=== PATIENT | male | born 1930 | race Caucasian/White ===

== ENCOUNTER 2016-12-09 10:56 | Outpatient (CLI) ==
[2014-01-10 14:35] VITALS: BMI 27.4
--- NOTE | 2016-12-09 11:45 | CT ---
EXAM: CT head without contrast. HISTORY: Initial presentation for head injury due to a fall. COMPARISON: 01/10/2014. TECHNIQUE: Multiple axial images of the brain were obtained from the skull base through the vertex without intravenous contrast. FINDINGS: There is no intracranial hemorrhage or extraaxial collection. The ralph-white differentia tion is maintained without evidence for acute large vascular territory infarction. There are areas of periventricular and subcortical white matter low attenuation. The cortical sulci and cerebral ve ntricles are symmetrically enlarged. The basal cisterns are well visualized. There is no hydroceph alus, mass effect, or midline shift. The paranasal sinuses and mastoid air cells are clear. The ca lvarium is intact. Atherosclerotic calcifications are present. IMPRESSION: 1. No acute intracranial abnormality. 2. Chronic small vessel ischemic changes and atrophy.
== END 2016-12-09 10:57 | disposition home or self-care (01) ==
LOC: RAD 10:56
PROVIDERS: ATTEND Emergency Medicine
DX: S09.90XA Unspecified injury of head, initial encounter (principal); W19.XXXA Unspecified fall, initial encounter

== ENCOUNTER 2017-01-14 12:17 | Outpatient (CLI) ==
[2014-01-10 14:35] VITALS: BMI 27.4
[2017-01-14 12:48] LABS: CREATININE 1.12 mg/dL (0.60-1.10)
--- NOTE | 2017-01-14 14:48 | MRI ---
EXAM: MRI brain without and with IV contrast. DATE: 14 January 2017. HISTORY: Dizziness. Memory problems. TECHNIQUE: Sagittal T1W pre and postcontrast, axial T2W, axial FLAIR, axial T1W pre and postcontras t, axial DWI, coronal T1W postcontrast, and coronal T2W GRE sequences of the brain were obtained usi 1.2 Colleen magnet. CONTRAST: Omniscan - 14 ml IV. COMPARISON: CT head 11/22/2016. MRI brain 10 January 2014. FINDINGS: The ventricles, cisterns, and subarachnoid spaces are commensurately enlarged due to invo lutional change. No midline shift, mass effect or abnormal extra-axial fluid collection is apparent . No acute infarct, hemorrhage or enhancing neoplasm is identified. No abnormal contrast enhanceme nt is identified in the brain, meninges or dura. Small, confluent rim of T2W/FLAIR hyperintensity i s observed in the white matter abutting each lateral ventricle. Small number of 2-10 mm, T2W/FLAIR bright, non-enhancing foci are scattered within the chen radiata, centrum semiovale and subcortica l white matter similar to January 2014. prominent Virchow-Andres spaces are redemonstrated within the b ilateral basal ganglia. Enlarged Virchow-Andres spaces are also noted in each cerebral peduncle. Se veral T2W/FLAIR bright, 2 mm foci are scattered in the solomon. The ralph - white matter differentiatio n is normal. No migration or diverticulation abnormality is identified. The amygdala, hippocampus, and parahippocampal gyri are similar bilaterally. The 7th/8th cranial nerve complexes, cerebellopon zuly angles, and visible cervical spinal cord are normal. There is no cerebellar tonsillar ectopia. The pituitary gland is normal in size . There is a 1.2 mm hypoenhancing focus in the inferior mar gin of the anterior pituitary lobe. Corpus callosum is normal in size and configuration. Flow void s are present in the major intracranial arteries and in the dural venous sinuses. No aneurysm, AVM or dural venous sinus thrombosis is apparent. No orbit abnormality is identified. The mastoid air cells are unremarkable. There is minor mucosal thickening within scattered right ethmoid air cells. No neck mass or lymphadenopathy is detected. No calvarial neoplasm or acute fracture is evident. IMPRESSIONS: 1. No acute infarct, hemorrhage, enhancing neoplasm or hydrocephalus. 2. Bilateral cerebral peduncle and basal ganglia prominent Virchow-Andres spaces (benign).. 3. Mild cerebral and brainstem small vessel disease. 4. Mild cerebral and minor cerebellar atrophy. 5. Minor ethmoid sinus mucosal disease. 6. Pituitary artifact vs microadenoma (1.2 mm).
== END 2017-01-14 12:18 | disposition home or self-care (01) ==
LOC: LAB 12:17
PROVIDERS: ATTEND Internal Medicine
DX: R42 Dizziness and giddiness (principal)
CPT/HCPCS: 36415; 82565

== ENCOUNTER 2017-07-26 15:57 | Inpatient (IN) ==
--- NOTE | 2017-07-26 18:00 | ED.PDOC ---
General ED Provider: Dr. MARJORIE MAURCIE Chief Complaint: Fall Stated Complaint: Fell striking forehead and sustaining a lacertation to the forehead. Slipped on ice going out to feed the birds. Denies LOC/Alert and coherent. Had large amout of bleeding contolled with pressure dressing. Time Seen by Physician: 16:00 Mode of Arrival: Ambulance Information Source: Patient, Family, EMT Exam Limitations: No limitations, Clinical condition Primary Care Provider: KENNETH THOMPSON Nursing and Triage Documentation Reviewed and Agree: Yes Reviewed sepsis parameters & appropriate labs ordered?: Yes System Inflammatory Response Syndrome: Not Applicable Sepsis Protocol: For patient's 13 years and over: Temp is 96.8 and below OR 101 and greater Pulse >90 BPM Resp >20/minute Acutely Altered Mental Status Are patient's symptoms suggestive of a new infection, such as: -Pneumonia -Skin, Soft Tissue -Endocarditis -UTI -Bone, Joint Infection -Implantable Device -Acute Abdominal Infection -Wound Infection -Meningitis -Blood Stream Catheter Infection -Unknown System Inflammatory Response Syndrome: Not Applicable Trauma/Injury Complaint Exam - Head Injury Complaint/Exam Location of Pain: Reports: Left, Forehead Mechanism of Injury: Reports: Trauma Symptoms Are: Still present Initial Severity: Severe Current Severity: Mild Character: Reports: Dull Aggravating: Reports: None Alleviating: Reports: Other (Lidocaine ) Associated Signs and Symptoms: Denies: Confusion, Memory loss, Seizure, Epistaxis, Neck pain, Nausea, Vomiting Loss of Consciousness: None Related History: Denies: Similar episode SDH Risk Factors: Present: None Cervical Spine Injury Risk Factors: Present: None Related Surgical History: Reports: None C-Collar in Place: no Backboard in Place: no Head Injury Findings: Present: Normal findings Focal Weakness: Present: None Focal Sensory Loss: Present: None Gait: Unable Gag Reflex Present: Yes Differential Diagnoses: Other (Forehead blunt trauma with laceration) Review of Systems - Review Of Systems Constitutional: Reports: No symptoms Eyes: Reports: No symptoms Ears, Nose, Mouth, Throat: Reports: No symptoms Respiratory: Reports: No symptoms Cardiac: Reports: No symptoms GI: Reports: No symptoms : Reports: No symptoms Musculoskeletal: Reports: No symptoms Skin: Reports: No symptoms Neurological: Reports: No symptoms Endocrine: Reports: No symptoms Hematologic/Lymphatic: Reports: No symptoms All Other Systems: Reviewed and Negative Past Medical History - Past Medical History Endocrine: Reports: Hypothyroid Cardiovascular: Reports: Hypertension Respiratory: Reports: None Hematological: Reports: None Gastrointestinal: Reports: None Genitourinary: Reports: None Neuro/Psych: Reports: None Musculoskeletal: Reports: None Cancer: Reports: None - Surgical History General Surgical History: Reports: None - Family History Family History: Reports: None - Social History Smoking Status: Former smoker Hx Substance Use: No Alcohol Screening: None - Immunizations Tetanus Shot up to Date: No Physical Exam - Physical Exam Appearance: Obese Ill-appearing: None Pain Distress: Moderate Eyes: CRISPIN, EOMI, Conjunctiva clear ENT: Ears normal, Nose normal, Oropharynx normal Neck: Supple Respiratory: Airway patent, Breath sounds clear GI/: Soft, Nontender Musculoskeletal: Normal strength, ROM intact, No edema Skin: Warm, Dry, Normal color Neurological: Sensation intact, Motor intact, Alert, Oriented Psychiatric: Affect appropriate Procedures - Laceration/Wound Repair Forehead Wound Description: Linear Wound Length (cm): 5 1/2 cm Wound Width: 1 cm Wound Depth: subcutaneous Wound Explored: Clean Wound Irrigated: Yes Wound Prep: Hibiclens, Betadine Anesthesia: Lidocaine w/ Epi Wound Repaired With: Sutures Suture Size and Type: 3-0 Ethilon Number of Sutures: 6 (deep simple for hemostasis-bleeding contolled) Critical Care Note - Critical Care Note Total Time (mins): 1 Course - Course Hematology/Chemistry: 07/26/17 18:05 07/26/17 18:05 Orders, Labs, Meds: Lab Review 07/26/17 07/26/17 18:05 18:05 WBC 13.27 H RBC 4.39 L Hgb 13.8 L Hct 37.8 L MCV 86.1 MCH 31.4 H MCHC 36.5 H RDW Coeff of Stacy 13.2 Plt Count 176 Immature Gran % (Auto) 1.2 Neut % (Auto) 79.9 Lymph % (Auto) 11.5 Mcleod % (Auto) 5.5 Eos % (Auto) 1.3 Baso % (Auto) 0.6 Immature Gran # (Auto) 0.2 Neut # 10.6 H Lymph # 1.5 Mcleod # 0.7 Eos # 0.2 Baso # 0.1 Sodium 142 Potassium 3.4 L Chloride 105 Carbon Dioxide 26 Anion Gap 14.4 BUN 13 Creatinine 1.07 Estimated GFR (MDRD) 66.00 BUN/Creatinine Ratio 12.14 Glucose 127 H Calcium 9.0 Total Bilirubin 0.6 AST 28 ALT 31 Alkaline Phosphatase 53 L Total Protein 6.9 Albumin 3.7 Globulin 3.2 Albumin/Globulin Ratio 1.16 Orders Category Date Time Status CBC W/ AUTO DIFF Stat LAB 07/26/17 18:05 Completed CMP [COMPREHENSIVE METABOLIC PANEL] Stat LAB 07/26/17 18:05 Completed Acetaminophen [Tylenol] MEDS 07/26/17 19:03 Discontinued 650 mg PO ONCE STA Cefazolin Sodium [Ancef] MEDS 07/26/17 19:07 Discontinued 1 gm .ROUTE .STK-MED ONE Cefazolin Sodium [Ancef] 1 gm MEDS 07/26/17 19:03 Discontinued 0.9 % Sodium Chloride [Sodium Chloride] 100 ml IV ONCE Diphth,Pertuss(Acell),Tet Vac [Boostrix] MEDS 07/26/17 19:13 Discontinued 0.5 ml IM .ONCE ONE Lidocaine 1%/Epinephrine [Lidocaine 1%-Epi 1:100,000 20 MEDS 07/26/17 18:07 Discontinued ml Mdv] 1 ml INJ ONCE STA CT CERVICAL SPINE W/O CONTRAST Stat RADS 07/26/17 17:[address] HEAD W/O CONTRAST Stat RADS 07/26/17 17:57 Completed Medications Generic Name Dose Route Start Last Admin Trade Name Frecami PRN Reason Stop Dose Admin Acetaminophen 650 mg 07/26/17 20:17 Tylenol PO Q4H PRN Analgesia Cefazolin Sodium 1 gm/ Sodium 100 mls @ 100 mls/hr 07/27/17 06:00 Chloride IV Q8HR [facility] Isosorbide Mononitrate 30 mg 07/27/17 09:00 Imdur PO DAILY TWYLA Levothyroxine Sodium 50 mcg 07/27/17 06:30 Synthroid PO QDAC TWYLA Non-Formulary Medication 1 tab 07/27/17 09:00 Amlodipine Bes/Olmesartan Med [Natty 5-40 Mg Tablet] PO DAILY TWYLA Non-Formulary Medication 1 tab 07/28/17 09:00 B2/Vits A,C,E/Lut/Zeaxanth/Min [Icaps Tablet] PO EVERY OTHER DAY TWYLA Non-Formulary Medication 10 mg 07/27/17 09:00 Nebivolol Hcl [Bystolic] PO DAILY TWYLA Discontinued Medications Generic Name Dose Route Start Last Admin Trade Name Andreina PRN Reason Stop Dose Admin Acetaminophen 650 mg 07/26/17 19:03 07/26/17 19:18 Tylenol PO 07/26/17 19:04 650 mg ONCE STA Administration Diphtheria/Pertussis/Tetanus Vacc 0.5 ml 07/26/17 19:13 07/26/17 19:23 Boostrix IM 07/26/17 19:14 0.5 ml .ONCE ONE Administration Cefazolin Sodium 1 gm/ Sodium 100 mls @ 100 mls/hr 07/26/17 19:03 07/26/17 19 :17 Chloride IV 07/26/17 20:02 100 mls/hr ONCE STA Administration Lidocaine/Epinephrine 1 ml 07/26/17 18:07 07/26/17 18:46 Lidocaine 1%-Epi 1:100,000 20 Ml Mdv INJ 07/26/17 18:08 1 ml ONCE STA Administration Vital Signs: Temp Pulse Resp BP Pulse Ox 07/26/17 15:58 97.8 F 93 H 20 143/96 H 96 Departure - Departure Time of Disposition: 19:30 Disposition: ADMITTED INPATIENT Discharge Problem: Forehead laceration, Closed head injury Condition: Good Pt referred to PMD for follow-up: Yes IPMP verified?: No Allergies/Adverse Reactions: Allergies No Known Allergies Allergy (Verified 07/26/17 16:14) Home Medications: Ambulatory Orders Amlodipine Bes/Olmesartan Med [Natty 5-40 mg Tablet] 1 tab PO DAILY 01/10/14 Aspirin [Aspirin EC] 81 mg PO 1700 01/10/14 B2/Vits A,C,E/Lut/Zeaxanth/Min [Icaps Tablet] 1 tab PO EVERY OTHER DAY 01/10/14 Isosorbide Mononitrate [Imdur] 30 mg PO DAILY 01/10/14 Levothyroxine Sodium [Synthroid] 50 tab PO DAILY 01/10/14 Nebivolol HCl [Bystolic] 10 mg PO DAILY 01/10/14
[2017-07-26] MEDS ORDERED: LIDOCAINE 1%-EPI 1:100,000 20 ML MDV INJ STA (18:07)
--- NOTE | 2017-07-26 18:58 | CT ---
EXAM: CT head without contrast. HISTORY: Trauma. PROCEDURE: Contiguous axial CT images of the head without contrast with coronal and sagittal reforma ts. FINDINGS: There is diffuse cerebral atrophy. The ventricles and basal cisterns are normal in size an d configuration. No evidence of mass or midline shift. No intracranial hemorrhage or evidence of la rge vessel infarct. No extra-axial fluid collection. There are chronic small vessel ischemic change s in the white matter. There are calcifications in the posterior right parietal lobe. The paranasal s inuses and mastoid air cells are well-aerated and normal in appearance. No skull fracture. There ar e small bifrontal scalp hematomas and bilateral periorbital soft tissue swelling. Impression: No intracranial hemorrhage or skull fracture. Small bifrontal scalp hematomas. Bilateral periorbital soft tissue swelling. Chronic small vessel ischemic changes. Diffuse cerebral atrophy.
[2017-07-26] MEDS ORDERED: ANCEF 1 GM in SODIUM CHLORIDE 100 ML IV STA (19:03)
[2017-07-26] MEDS ORDERED: TYLENOL PO STA (19:03)
--- NOTE | 2017-07-26 19:04 | CT ---
EXAM: CT of the cervical spine without contrast. HISTORY: Injury. PROCEDURE: Contiguous axial CT images of the cervical spine without contrast with coronal and sagitt al reformats. FINDINGS: There is normal alignment of the cervical vertebral bodies and facets. The vertebral body heights are maintained. There is disc space narrowing at multiple levels of the cervical spine. The re are posterior osteophytes at multiple levels of the cervical spine with multilevel neural foramina l narrowing. There is multilevel facet arthropathy. The C1-2 relationship is maintained. No prever tebral soft tissue abnormality. Impression: No evidence of fracture. Normal alignment of the cervical spine with degenerative changes as described. Multilevel neural foraminal narrowing as described.
[2017-07-26] MEDS ORDERED: ANCEF ONE (19:07)
[2017-07-26] MEDS ORDERED: BOOSTRIX IM ONE (19:13)
[2017-07-26] MEDS ORDERED: TYLENOL PO PRN (20:17)
[2017-07-26 21:22] VITALS: BMI 27.1
[2017-07-27] MEDS ORDERED: ANCEF ONE (03:25)
[2017-07-27] MEDS: ANCEF 1 GM in SODIUM CHLORIDE 100 ML IV SCH ×3 (06:00→20:43)
[2017-07-27] MEDS: SYNTHROID PO SCH (06:00)
[2017-07-27] MEDS ORDERED: K-DUR PO STA (08:42)
[2017-07-27] MEDS: BYSTOLIC PO SCH (08:56)
[2017-07-27] MEDS: NORVASC PO SCH (08:57)
[2017-07-27] MEDS: BENICAR PO SCH (08:57)
[2017-07-27] MEDS: IMDUR PO SCH (08:58)
[2017-07-27] MEDS: COLACE PO SCH (08:58)
[2017-07-27] MEDS ORDERED: OLMESARTAN MED PO SCH (09:00)
[2017-07-27] MEDS ORDERED: AMLODIPINE BES PO SCH (09:00)
[2017-07-27] MEDS ORDERED: NON-FORMULARY MEDICATION (Nebivolol Hcl [Bystolic] 10 MG) PO SCH (09:00)
--- NOTE | 2017-07-27 11:34 | PCM.PROG ---
Attending Provider: ATTENDING PROVIDER: Dr. KENNETH THOMPSON This patient is seen with Josefina Barnhart, Nurse Practitioner. DATE OF SERVICE: 07/27/17 SUBJECTIVE: This 86 year old WHITE/ M was hospitalized 07/26/17. The patient is alert, lying in bed. He is confused off and on due to dementia. Denies dizziness, headache or changes in vision. REVIEW OF SYSTEMS: CONSTITUTIONAL: Weakness. No night sweats. No fever or chills. HEENT: Eyes: No visual changes. No eye pain. No eye discharge. ENT: No runny nose. No epistaxis. No sinus pain. No odynophagia. No congestion. RESPIRATORY: No cough, no congestion. No hemoptysis. No shortness of breath. CARDIOVASCULAR: No angina symptoms. No CHF symptoms. No atypical chest pain for CAD. No palpitations. No orthopnea.. GASTROINTESTINAL: No abdominal pain. No nausea or vomiting. No diarrhea or constipation. No hematemesis. No hematochezia. GENITOURINARY: No urgency. No frequency. No dysuria. No hematuria. No obstructive symptoms. No discharge. No pain. No significant abnormal bleeding. MUSCULOSKELETAL: No musculoskeletal pain; no joint swelling. NEUROLOGICAL: Awake, alert, oriented to person and place, not time. No headache. No neck pain. No syncope. No seizures. No dizziness. PSYCHIATRIC: Not anxious. No depression. No suicidal thoughts. No homicidal thoughts. SKIN: No rash. No lesions. Laceration to forehead. Multiple bruises. ENDOCRINE: No unexplained weight loss. No weight gain. HEMATOLOGIC/LYMPHATIC: No anemia. No purpura. No petechiae. No prolonged or excessive bleeding. No palpable lymph nodes. PHYSICAL EXAMINATION: GENERAL: The patient is awake, alert and oriented, lying in bed in no distress. VITAL SIGNS: Temperature 97.3 F, Pulse 86, Respiratory Rate 20, BP 147/96, Pulse Ox 96% HEENT: Head normocephalic, atraumatic. Eyes: Extraocular muscles are intact. Pupils are equal, round and reactive to light and accommodation. Ears: No lesions. Nose appeared normal. Throat: No exudate or erythema. NECK: Supple. No JVD, no carotid bruit. No lymphadenopathy or thyromegaly. LUNGS: Diminished breath sounds bilaterally. Clear to auscultation. Percussion note normal. Chest symmetrical. HEART: S1, S2, no S3. No murmurs. No cyanosis or clubbing. No ascites. Pulses: Dorsalis pedis and posterior tibial pulses +1 to +2 both sides. ABDOMEN: Soft. Non-tender. Bowel sounds active. No CVA tenderness. No mass felt. EXTREMITIES: No edema. Full range of motion of all extremities, equal. NEUROLOGIC: No focal deficit. Cranial nerves II through XII are grossly intact. No headache, no double vision or headache. SKIN: Warm and dry. 6" laceration to forehead, intact. No sign of infection. Multiple bruises due to fall. Turgor-normal. LYMPHATIC: No palpable lymph nodes/no lymphedema. MUSCULOSKELETAL: Normal joints with no swelling. Muscle tone is normal. LAB REVIEW: 07/27/17 04:30 07/27/17 04:30 07/27/17 04:30: Sodium 140, Potassium 3.2 L, Chloride 106, Carbon Dioxide 25, Anion Gap 12.2, BUN 15, Creatinine 1.03, Estimated GFR (MDRD) 69.00, BUN/ Creatinine Ratio 14.56, Glucose 131 H, Calcium 8.6, Total Bilirubin 0.8, AST 25 , ALT 28, Alkaline Phosphatase 48 L, Total Protein 6.4, Albumin 3.5, Globulin 2.9, Albumin/Globulin Ratio 1.21 07/27/17 04:30: WBC 11.91 H, RBC 4.13 L, Hgb 12.9 L, Hct 36.0 L, MCV 87.2, MCH 31.2 H, MCHC 35.8 H, RDW Coeff of Tsacy 13.3, Plt Count 175, Immature Gran % (Auto ) 0.8, Neut % (Auto) 64.1, Lymph % (Auto) 24.6, Hudson % (Auto) 7.1, Eos % (Auto) 2.7, Baso % (Auto) 0.7, Immature Gran # (Auto) 0.1, Neut # 7.6 H, Lymph # 2.9, Hudson # 0.9, Eos # 0.3, Baso # 0.1 ASSESSMENT: 1. Head injury with laceration status post fall 2. Hypertension 3. Hypokalemia PLAN: 1. Potassium 40 mEq b.i.d. 2. MRI of head with contrast today. Plan and coordination of the patient's care discussed in the presence of Weight Control Lecturer and nurse. CONDITION: Stable SCRIBED BY: AMI HANNAH Italian Teacher scribed while in presence of service performed by Dr. Thompson/Josefina Barnhart APRN on 07/27/17 ([id number])
--- NOTE | 2017-07-27 11:56 | RS.PTINEVL ---
Subjective - Patient information Date of Evaluation: 07/27/17 Date of Arrival on Unit: 07/26/17 Admitted From:: Home Diagnosis: fall with laceration to forehead requiring stitches Usual Living Arrangement: With Spouse Living Arrangement Comments: lives at home with spouse. Home Environment: House, Stairs (few), Rail Medical History: Hypertension, Dementia Medical History Comments:: chronic neck pain, erhlichia in 2013 LATEX ALLERGY?: No Medications: see chart Subjective Information/ Patient Comments:: pt states he falls often at home because he gets overbalanced and falls forward. - Level of function Prior to this admission, the patient could do the following:: Independent ADL's , Independent Ambulation, Drive Abilities prior to this admission: pt amb with quad cane at home and assisted into and out of shower. pt drove in [facility] ([place]) Current Level of Function: Partially Dependent Current Equipment Used at Home: cane Pain Assessement - Location Neck Description: Aching Intensity: 1 Pain Alleviating Factors: Medication Interventions - Objective Patient Orientation: Person, Place Current Interventions: Telemetry Range of Motion - ROM Right Upper Extremity AROM: WFL's Left Upper Extremity AROM: WFL's Right Lower Extremity AROM: WFL's Left Lower Extremity AROM: WFL's Muscle Strength - Muscle Strength Right Upper Extremity Strength: Mild Weakness (grossly 4/5) Left Upper Extremity Strength: Mild Weakness (grossly 4/5) Right Lower Extremity Strength: Mild Weakness (hip flex 4/5, knee flex/ext 4/5, ankle DF/PF 4+/5) Left Lower Extremity Strength: Mild Weakness (hip flex 4/5, knee flex/ext 4/5, ankle DF/PF 4+/5) Sensation - Sensation Right Upper Extremity Sensation: Intact/Normal Left Upper Extremity Sensation: Intact/Normal Right Lower Extremity Sensation: Intact/Normal Left Lower Extremity Sensation: Intact/Normal Balance - Sitting Balance and Reactions Static Sitting Balance: Good Dynamic Sitting Balance: Fair Sitting Equilibrium Reactions: Delayed Left, Delayed Right Sitting Protective Reactions: Delayed Left, Delayed Right - Standing Balance and Reactions Static Standing Balance: Fair Dynamic Standing Balance: Poor Standing Equilibrium Reactions: Delayed Left, Delayed Right Standing Protective Reactions: Delayed Left, Delayed Right - Comments Balance Assessment Comments: Tinetti score: 14/28 Functional Mobility - Bed Mobility Rolling R/L: Min Assist Supine to Sit: Min Assist Sit to Supine: Min Assist - Transfers Sit to Stand: Min Assist Stand to Sit: Min Assist - Safety Awareness Safety Awareness: Fair Ambulation - Ambulation Assistive Device Used: Rolling Walker Orthotic/Prosthetic Device: No Distance: 100ft Assistance needed with Ambulation: CGA, Min Assist Gait Deviations: Forward posture, Short stride Ambulation Comments: pt amb with flexed posture, decreased step length, as well as increased lat sway Factors Affecting Ambulation: Decreased Balance, Weakness, Decreased Coordination, Decreased Safety, Cognitive Status, Limited Endurance Treatment time - Time with patient Total treatment time: 28 Patient Education - Education Patient Education: Education of Plan of Care Teaching Recipient: Patient Teaching Methods: Discussion Assessment - Assessment Problem List:: Decreased level of function, Requires training/education, Decreased safety/Risk of falls, Weakness, Cognitive status limits abilities Rehab Potential: Good Further Therapy Indicated?: Yes Short Term Goals GOAL #1: pt transfer sup to/from sit to/from stand CGA Goal to be met by: 07/30/17 GOAL #2: pt amb with rwx 125ft with CGA with no LOB Goal to be met by: 07/30/17 GOAL #3: pt demonstrate ability to rolling and scooting up in bed independently Goal to be met by: 07/31/17 Silk Screen Operator Goals GOAL #1: pt transfer sup to/from sit to/from stand SBA Goal to be met by: 08/02/17 GOAL #2: pt amb functional household distances with rwx with SBA Goal to be met by: 08/02/17 GOAL #3: pt with improved dyn stand balance as noted by tinetti score Goal to be met by: 08/02/17 Plan Plan of Care: Therapeutic EX, Therapeutic Activity Other:: gait training Frequency of Treatment: 1-2 X day, as tolerated Duration of Treatment: 6 days Anticipated Discharge Destination: Home Has the Physician been added for Co-signature?: Yes
--- NOTE | 2017-07-27 12:58 | MRI ---
EXAM: MRI brain without and with IV contrast. DATE: 07/27/2017. HISTORY: Fall. Laceration left forehead. TECHNIQUE: Sagittal T1W pre and postcontrast, axial T2W, axial FLAIR, axial T1W pre and postcontrast , axial DWI, coronal T1W postcontrast, and coronal T2W GRE sequences of the brain were obtained using 1.2 Colleen magnet. CONTRAST: Omniscan - 14 ml IV. COMPARISON: CT head 07/26/2017. MRI brain 14 January 2017. FINDINGS: The ventricles, cisterns, and subarachnoid spaces are commensurately enlarged due to invol utional change. No midline shift, mass effect or abnormal extra-axial fluid collection is apparent. No acute infarct, hemorrhage or enhancing neoplasm is identified. No abnormal contrast enhancement is identified in the brain, meninges or dura. Prominent Virchow-Andres spaces are observed in each ba karena ganglia. Small, confluent rim of T2W/FLAIR hyperintensity is redemonstrated in the white matter abutting each lateral ventricle. Small number of 2-10 mm, T2W/FLAIR bright, non-enhancing foci scatt ered in the chen radiata, centrum semiovale and subcortical white matter are essentially unchanged from January 2017. Left thalamic T2W bright, T1W dark, 1.8 x 5 mm focus is likely an old infarct. Smal l areas of T2W/FLAIR hyperintensity within the solomon are slightly more pronounced compared to January 201 7. The ralph - white matter differentiation is normal. No migration or diverticulation abnormality i s identified. The amygdala, hippocampus, and parahippocampal gyri are similar bilaterally. The 7th/ 8th cranial nerve complexes, cerebellopontine angles, and visible cervical spinal cord are normal. T here is no cerebellar tonsillar ectopia. The pituitary gland is normal in size. A 1.2 mm hypoenhanc ing focus is observed in the anterior inferior aspect of the pituitary gland is similar to January 2017 Corpus callosum is normal in size and configuration. Flow voids are present in the major intracrani al arteries and in the dural venous sinuses. No aneurysm, AVM or dural venous sinus thrombosis is ap parent. No orbit abnormality is identified. The mastoid air cells are unremarkable. There is minor mucosal thickening within each frontal sinus and scattered ethmoid air cells. No paranasal sinus op acification or air-fluid level is revealed. No neck mass or lymphadenopathy is detected. No calvari al neoplasm or acute fracture is evident. A left frontal scalp hematoma (14 x 7 mm) with adjacent sub cutaneous edema and scalp laceration correspond with CT abnormality of the same date. IMPRESSIONS: 1. No acute infarct, intracranial hemorrhage, enhancing neoplasm or hydrocephalus. 2. Prominent Virchow-Andres spaces in the basal ganglia and cerebral peduncles. 3. Mild cerebral and brainstem small vessel disease. 4. Mild cerebral and minor cerebellar atrophy. 5. Minor ethmoid and maxillary sinus disease. 6. 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 7. Left frontal scalp hematoma/contusion/laceration.
--- NOTE | 2017-07-27 13:06 | PN ---
DATE OF SERVICE: 07/26/17 SUBJECTIVE: 86 year old white male fell at home and had head injury. The patient says that he was woozy for a while and didn't find his house which was near by. He walked to the house and then decided to come to the emergency room. He has laceration on the scalp on the left side. The patient was seen and examined by the ER attending. I was also present at that time. The patient's entire neurological status including reflexes, pupils were equal and reactive to light normal. All the reflexes were normal. He was moving all the extremities. He was oriented to time, place and person. The patient's CT scan was negative. The [employer] OFFIC[employer] examination by the ER physician was also negative. The patient is up and about. The patient' s bleeding has stopped. The patient has been sutured up by ER attending. Entire chemistry and CBC are negative. The patient is going to be watched with neuro checks. CONDITION: Stable. TIME SPENT: More than 30 minutes. Plan and coordination of the patient's care discussed in the presence of nurse. WARD
--- NOTE | 2017-07-27 14:23 | RS.OTINEVL ---
Subjective - Patient information Date of Evaluation: 07/27/17 Date of Arrival on Unit: 07/26/17 Admitted From:: Home Usual Living Arrangement: With Spouse Living Arrangement Comments: lives at home with spouse. Home Environment: House, Stairs (few), Rail Medical History: Hypertension, Dementia Medical History Comments:: chronic neck pain, erhlichia in 2014, macular degeneration, dementia, Anemia, CHI LATEX ALLERGY?: No Medications: see chart Subjective Information/ Patient Comments:: "My son-in-law is going to come up here and give me heck." "I have fallen alot." "I broke my glasses." "This left foot and leg does not always work right." - Level of function Prior to this admission, the patient could do the following:: Independent ADL's , Independent Ambulation, Drive Abilities prior to this admission: Pt was ambulating with a quad cane assistive device intermittently. Pt was falling numerous times a day. Pt was independent with dressing, showering. Current Level of Function: Partially Dependent Current Equipment Used at Home: cane Pain Assessment - Pain Pain Score: 0 Interventions - Objective Patient Orientation: Person, Place, Situation Current Interventions: IV's, Oxygen, Telemetry Observation: Pt has sutures to the Left side of his head above the left eyebrow and eye into the hair line. Pt has bruising to both eyes and cheek bones due to breaking the eye glasses. Interventions - ROM Right Upper Extremity AROM: WFL's Left Upper Extremity AROM: WFL's - Strength Right Upper Extremity Strength: Mild Weakness Left Upper Extremity Strength: Mild Weakness - Sensation Right Upper Extremity Sensation: Intact/Normal Left Upper Extremity Sensation: Intact/Normal Balance - Sitting Balance Static Sitting Balance: Fair Dynamic Sitting Balance: Fair - Standing Balance Static Standing Balance: Fair Dynamic Standing Balance: Poor ADL Skills - Self Feeding Self Feeding: Independent - Grooming Grooming: Min Assist - Bathing Bathing UE: CGA Bathing LE: CGA - Dressing Dressing UE: CGA Dressing LE: Min Assist - Toilet Management Toileting Management: Min Assist Functional Mobility - Bed Mobility Rolling R/L: Not Tested Scooting: Not Tested Supine to Sit: Not Tested Sit to Supine: Not Tested - Transfers Sit to Stand: Min Assist Stand to Sit: Min Assist Stand Pivot Transfers: Min Assist - Ambulation Weight Bearing Status: FWB Assistive Device Used: Rolling Walker - Safety Awareness Safety Awareness: Poor Additional Treatment Performed - Time with patient Total treatment time: 20 Activities Patient Interests:: Watching Television, Visiting/Socializing Patient Education Patient Education: Home Safety, Education of Plan of Care Teaching Recipient: Patient, Family Teaching Methods: Discussion Assessment Problem List:: Decreased level of function, Decreased safety/Risk of falls, Weakness Rehab Potential: Good Further Therapy Indicated?: Yes Short Term Goals - Goals GOAL 1: Pt to complete functional mobility CGA with RW. Goal to be met by: 07/30/17 GOAL 2: Pt to complete toileting transfer CGA with RW. Goal to be met by: 07/30/17 GOAL 3: Pt to complete sink level ADLS CGA. Goal to be met by: 07/30/17 Group Home Goals GOAL 1: Pt to complete functional mobility SUP with RW. Goal to be met by: 08/04/17 GOAL 2: Pt to complete toileting transfer SUP with RW. Goal to be met by: 08/04/17 GOAL 3: Pt to complete sink level ADLS SUP. Goal to be met by: 08/04/17 Plan Plan of Care: Therapeutic EX, Neuromuscular Re-Educ, Therapeutic Activity, Self- Care/Home Management Frequency of Treatment: 1-2 X day, as tolerated Duration of Treatment: 2 Weeks Anticipated Discharge Destination: Home Has the Physician been added for Co-signature?: Yes
[2017-07-28] MEDS: ANCEF 1 GM in SODIUM CHLORIDE 100 ML IV SCH (05:40)
[2017-07-28] MEDS: SYNTHROID PO SCH (05:40)
[2017-07-28] MEDS ORDERED: K-DUR ONE (07:48)
[2017-07-28] MEDS ORDERED: K-DUR PO SCH (08:00)
[2017-07-28] MEDS: IMDUR PO SCH (08:45)
[2017-07-28] MEDS: COLACE PO SCH (08:46)
[2017-07-28] MEDS: BENICAR PO SCH (08:46)
[2017-07-28] MEDS: NORVASC PO SCH (08:46)
[2017-07-28] MEDS: BYSTOLIC PO SCH (08:46)
[2017-07-28] MEDS ORDERED: [UNRECOGNIZED DRUG - OTHER] PO SCH (09:00)
--- NOTE | 2017-07-28 09:59 | PCM.PROG ---
Attending Provider: ATTENDING PROVIDER: Dr. KENNETH THOMPSON This patient is seen with Josefina Barnhart, Nurse Practitioner. DATE OF SERVICE: 07/28/17 SUBJECTIVE: This 86 year old WHITE/ M was hospitalized 07/26/17. The patient is lying in bed, alert. He denies any dizziness. He has been up and about and is ready to go home. He is agreeable to PT at home. REVIEW OF SYSTEMS: CONSTITUTIONAL: Weakness. No night sweats. No fever or chills. HEENT: Eyes: No visual changes. No eye pain. No eye discharge. ENT: No runny nose. No epistaxis. No sinus pain. No odynophagia. No congestion. RESPIRATORY: No cough, no congestion. No hemoptysis. No shortness of breath. CARDIOVASCULAR: No angina symptoms. No CHF symptoms. No atypical chest pain for CAD. No palpitations. No orthopnea.. GASTROINTESTINAL: No abdominal pain. No nausea or vomiting. No diarrhea or constipation. No hematemesis. No hematochezia. GENITOURINARY: No urgency. No frequency. No dysuria. No hematuria. No obstructive symptoms. No discharge. No pain. No significant abnormal bleeding. MUSCULOSKELETAL: No musculoskeletal pain; no joint swelling. NEUROLOGICAL: Awake, alert, oriented to time, place and person. No headache. No neck pain. No syncope. No seizures. No dizziness. PSYCHIATRIC: Not anxious. No depression. No suicidal thoughts. No homicidal thoughts. SKIN: No rash. No lesions. Left forehead laceration with bruising to left side of face. ENDOCRINE: No unexplained weight loss. No weight gain. HEMATOLOGIC/LYMPHATIC: No anemia. No purpura. No petechiae. No prolonged or excessive bleeding. No palpable lymph nodes. PHYSICAL EXAMINATION: GENERAL: The patient is awake, alert and oriented, lying in bed in no distress. VITAL SIGNS: Temperature 98.5 F, Pulse 61, Respiratory Rate 18, BP 127/75, Pulse Ox 95% HEENT: Head normocephalic. Laceration to left forehead, no sign of infection. Eyes: Extraocular muscles are intact. Pupils are equal, round and reactive to light and accommodation. Ears: No lesions. Nose appeared normal. Throat: No exudate or erythema. NECK: Supple. No JVD, no carotid bruit. No lymphadenopathy or thyromegaly. LUNGS: Diminished breath sounds. Clear to auscultation. Percussion note normal. Chest symmetrical. HEART: S1, S2, no S3. No murmurs. No cyanosis or clubbing. No ascites. Pulses: Dorsalis pedis and posterior tibial pulses +1 to +2 both sides. ABDOMEN: Soft. Non-tender. Bowel sounds active. No CVA tenderness. No mass felt. EXTREMITIES: No edema. Full range of motion of all extremities, equal. NEUROLOGIC: No focal deficit. Cranial nerves II through XII are grossly intact. No headache, no double vision or headache. SKIN: Warm and dry. Left-side forehead laceration. Bruising to left side of face. Turgor-normal. LYMPHATIC: No palpable lymph nodes/no lymphedema. MUSCULOSKELETAL: Normal joints with no swelling. Muscle tone is normal. LAB REVIEW: 07/28/17 03:45 07/28/17 03:45 07/28/17 03:45: Sodium 140, Potassium 3.4 L, Chloride 107, Carbon Dioxide 25, Anion Gap 11.4, BUN 13, Creatinine 1.04, Estimated GFR (MDRD) 68.00, BUN/ Creatinine Ratio 12.50, Glucose 118 H, Calcium 8.4, Total Bilirubin 0.6, AST 22 , ALT 21, Alkaline Phosphatase 43 L, Total Protein 6.1, Albumin 3.2 L, Globulin 2.9, Albumin/Globulin Ratio 1.10 07/28/17 03:45: WBC 9.48, RBC 3.76 L, Hgb 11.7 L, Hct 33.2 L, MCV 88.3, MCH 31.1 H, MCHC 35.2, RDW Coeff of Stacy 13.5, Plt Count 160, Immature Gran % (Auto) 0.9, Neut % (Auto) 52.9, Lymph % (Auto) 32.7, [place] % (Auto) 7.2, Eos % (Auto) 5.4, Baso % (Auto) 0.9, Immature Gran # (Auto) 0.1, Neut # 5.0, Lymph # 3.1, [place] # 0.7, Eos # 0.5, Baso # 0.1 ASSESSMENT: 1. Head injury with laceration status post fall 2. Hypertension 3. Hypokalemia PLAN: 1. D/C home 2. Keflex 500 t.i.d. for 7 days 3. Potassium 40 mEq b.i.d. one dose before discharge 4. The patient is agreeable to Home Health for nursing assessment and PT. Plan and coordination of the patient's care discussed in the presence of Furniture Removalist and nurse. CONDITION: Stable SCRIBED BY: AMI HANNAH Switch Foreman scribed while in presence of service performed by Dr. Thompson/Josefina Barnhart APRN on 07/28/17 ([id number])
[2017-07-28 10:33] VITALS: BP 148/81; TEMP 98.2
--- NOTE | 2017-07-28 11:56 | CM.DICTOOL ---
ADMISSION: 07/26/17 20:16 DISCHARGE: 07/28/17 DATE OF SERVICE: 07/28/17 FINAL DIAGNOSIS OPEN HEAD INJURY FROM GROUND LEVEL FALL AT HOME LEFT FOREHEAD LACERATION 2" HYPOKALEMIA, TREATED HISTORY OF FREQUENT FALLS AT HOME THROMBOCYTOPENIA CAD S/P HEART CATH, DR. TRAN, 2013 (NO STENT) HYPERTENSION DYSLIPIDEMIA ANEMIA HYPOTHYROIDISM GERD HISTORY OF ERHLICHIA, 01/23 MACULAR DEGENERATION, 1998 ONSET OF SYMPTOMS EARLY DEMENTIA PROSTATE CANCER, ([place], [place]--DR. MCDANIEL), 1994 OSTEOARTHRITIS, BACK AND HANDS HOLTER MONITORING 01/10/14 BASIC RHYTHM SINUS, RATES 50-130, AVE 65/MIN PVC'S 3% SOME INTERPOLATED. NO V TACHY. NO ST-T WAVE CHAGNES FROM BASELINE. NO ACTIVITY LOG MAINTAINED. 2-D AND M-MODE ECHO 01/14/14 - [facility] MODERATE BORDERLINE LEFT ATRIAL CAVITY ENLARGEMENT HYPOKINETIC INFERIOR POST. WALL LEFT VENTRICULAR EJECTION FX 59% VALVES NORMAL LAST VITALS Temp Pulse Resp BP Pulse Ox 98.2 F 68 20 148/81 H 96 07/28/17 10:00 07/28/17 10:00 07/28/17 10:00 07/28/17 10:00 07/28/17 10:00 ACTIVE HOME MEDICATIONS Amlodipine Besylate/Olmesartan (Natty 5-40) (Norvasc) 5/40 mg PO DAILY [facility] Last Admin: 07/28/17 08:46 Dose: 5/40 mg Aspirin 81 mg, EC PO Daily (Hold until further notice by Dr. Roque) B2/Vits A,C,E/Lut/Zeaxanth/Min (I-Caps) 1 tab PO Every Other Day Docusate Sodium (Colace) 100 mg PO DAILY [facility] Last Admin: 07/28/17 08:46 Dose: 100 mg Isosorbide Mononitrate (Imdur) 30 mg PO DAILY [facility] Last Admin: 07/28/17 08:45 Dose: 30 mg Levothyroxine Sodium (Synthroid) 50 mcg PO QDAC [facility] Last Admin: 07/28/17 05:40 Dose: 50 mcg Nebivolol (Bystolic) 10 mg PO DAILY [facility] Last Admin: 07/28/17 08:46 Dose: 10 mg B2/Vits A,C,E/Lut/Zeaxanth/Min [Icaps Tablet] 1 tab PO EVERY OTHER DAY [facility] Last Admin: 07/28/17 08:48 Dose: Not Given ALLERGIES No Known Allergies Allergy (Verified 07/26/17 16:14) NEW PRESCRIPTIONS: KEFLEX 500 MG, TAKE ONE CAPSULE BY MOUTH THREE TIMES DAILY FOR 7 DAYS SMOKING: FORMER SMOKER NONE NOW DISEASE SPECIFIC EDUCATION: FALLS AT HOME PHYSICAL THERAPY OPEN HEAD INJURY HYPOKALEMIA HOME MEDICATIONS NEW PRESCRIPTIONS ROLLING WALKER FOLLOW UP LAB REVIEW: 07/28/17 03:45 07/28/17 03:45 07/28/17 03:45: Sodium 140, Potassium 3.4 L, Chloride 107, Carbon Dioxide 25, Anion Gap 11.4, BUN 13, Creatinine 1.04, Estimated GFR (MDRD) 68.00, BUN/ Creatinine Ratio 12.50, Glucose 118 H, Calcium 8.4, Total Bilirubin 0.6, AST 22 , ALT 21, Alkaline Phosphatase 43 L, Total Protein 6.1, Albumin 3.2 L, Globulin 2.9, Albumin/Globulin Ratio 1.10 07/28/17 03:45: WBC 9.48, RBC 3.76 L, Hgb 11.7 L, Hct 33.2 L, MCV 88.3, MCH 31.1 H, MCHC 35.2, RDW Coeff of Stacy 13.5, Plt Count 160, Immature Gran % (Auto) 0.9, Neut % (Auto) 52.9, Lymph % (Auto) 32.7, [place] % (Auto) 7.2, Eos % (Auto) 5.4, Baso % (Auto) 0.9, Immature Gran # (Auto) 0.1, Neut # 5.0, Lymph # 3.1, [place] # 0.7, Eos # 0.5, Baso # 0.1 PLAN: DISCHARGE HOME TODAY RETURN TO SEE DR. ROQUE IN 5-7 DAYS. PLEASE PHONE THE OFFICE TO SCHEDULE YOUR FOLLOW UP APPOINTMENT ([phone]) YOUR SUTURES WILL BE REMOVED DURING YOUR APPOINTMENT WITH DR. ROQUE [facility] IN [place], [place] WILL PHONE YOU TO SCHEDULE YOUR PHYSICAL THERAPY APPOINTMENTS [phone] YOU WILL BE GIVEN A PRESCRIPTION TO OBTAIN A ROLLING WALKER. [facility] [place] HAS INFORMED US THAT THEY HAVE A ROLLING WALKER AVAILABLE FOR PURCHASE IF YOU SO DESIRE. RESUME YOUR HOME MEDICATIONS PER LIST PROVIDED BY THE NURSING STAFF NEW PRESCRIPTIONS KEFLEX 500 MG, TAKE ONE CAPSULE BY MOUTH THREE TIMES DAILY FOR 7 DAYS ACTIVITY GET PLENTY OF REST AT HOME. GRADUALLY INCREASE YOUR ACTIVITY LEVEL ACCORDING TO YOUR TOLERATION. USE THE ROLLING WALKER TO AMBULATE SAFELY DIET HEALTHY HEART SUMMARY THE PATIENT IS ALERT AND ORIENTED X3. AT TIMES HE IS FORGETFUL ACCORDING TO HIS DAUGHTER. HE HAS BEEN INDEPENDENT WITH ADL'S. AT HOME HE HAS A CANE AVAILABLE. HE CARRIES THE CANE INSTEAD OF USING IT FOR AMBULATORY SUPPORT. HE IS NOT HOME BOUND DISQUALIFYING HIM FROM RECEIVING IN HOME SERVICES SUCH HOME HEALTH, PHYSICAL THERAPY, OCCUPATIONAL THERAPY. HE IS AGREEABLE TO RECEIVE PHYSICAL THERAPY AT [facility] IN [place], [place]. HE SAYS HE HAS USED AND ENJOYED THEIR SERVICES IN THE PAST. HE WILL BENEFIT FROM TEACHING REGARDING PROPER USE OF HIS CANE AND THE ROLLING WALKER TO BE OBTAINED AFTER THIS DISCHARGE. HE IS AGREEABLE TO COMPLY WITH USE REQUESTED. THE PATIENT HAS A TWO INCH VERTICAL LACERATION TO THE LEFT SIDE OF HIS FOREHEAD. THE WOUND HAS SIX SUTURES APPROXIMATING THE EDGES. PERIORBITAL ECCHYMOSIS IS PRESENT BILATERALLY WHERE MR. KINGSTON WAS WEARING HIS GLASSES DURING THE TIME OF HIS FALL STRIKING HIS FACE/HEAD. THERE IS NO DRAINAGE OR S/ S OF INFECTION PRESENT. SMALL ABRAISED AREAS ARE PRESENT AT THE MID-BACK AND LEFT KNEE. THESE ARE HEALING VERY WELL AND HAVE NO DRAINAGE AND VERY LITTLE PINKNESS FROM THE BROKEN SKIN SUSTAINED DUE TO THE FALL. OTHERWISE THE SKIN TURGOR IS INTACT AND WITHOUT DECUBITUS ULCERS. HYDRATION AND NUTRITIONAL STATUS ARE GOOD. MR. KINGSTON DESIRES DISCHARGE HOME. HE IS AWARE AND AGREEABLE FOR TODAY'S DISCHARGE PLANS. CURRENT CODE STATUS FULL CODE MORENO GILES APRN KENNETH ROQUE M.D.
--- NOTE | 2017-07-28 16:39 | HP ---
DATE OF SERVICE: 07/27/17 HISTORY OF PRESENT ILLNESS: This is an 86-year-old white male who fell forward at home striking his head. He has a laceration to his forehead. He slipped on the ice while trying to feed his birds. He does have a history of dementia with intermittent confusion. He was brought in by the ambulance. PAST MEDICAL HISTORY: Hypothyroidism Hypertension Difficulty hearing Dementia Ataxia History of falls Coronary artery disease Hypothyroidism PAST SURGICAL HISTORY: No pertinent surgical history. REVIEW OF SYSTEMS: CONSTITUTIONAL: No night sweats. No fatigue, malaise, lethargy. No fever or chills. HEENT: Positive for head laceration. Bruising on the face. Eyes: No visual changes. No eye pain. No eye discharge. ENT: No runny nose. No epistaxis. No sinus pain. No sore throat. No odynophagia. No ear pain. No congestion. RESPIRATORY: No cough, no congestion. No hemoptysis. No shortness of breath. CARDIOVASCULAR: No angina symptoms. No CHF symptoms. No atypical chest pain for CAD. No palpitations. No orthopnea. GASTROINTESTINAL: No abdominal pain. No nausea or vomiting. No diarrhea or constipation. No hematemesis. No hematochezia. GENITOURINARY: No urgency. No frequency. No dysuria. No hematuria. No obstructive symptoms. No discharge. No pain. No significant abnormal bleeding. MUSCULOSKELETAL: No musculoskeletal pain. No joint swelling. No arthritis. NEUROLOGICAL: Positive for confusion. No headache. No neck pain. No syncope. No seizures. No dizziness. PSYCHIATRIC: Not anxious. No depression. No suicidal thoughts. No homicidal thoughts. SKIN: No rash. Laceration to forehead. Bruising to face. ENDOCRINE: No unexplained weight loss. No weight gain. HEMATOLOGIC/LYMPHATIC: No anemia. No purpura. No petechiae. No prolonged or excessive bleeding. No palpable lymph nodes. PERSONAL/FAMILY/SOCIAL HISTORY: Family history is not pertinent. Social History: The patient is a former smoker , he quit years ago. He lives at home with his . He walks with the use of a cane or a walker at home. He denies any alcohol or ilicit drug use. His daughters are very involved in his care. MEDICATIONS: (HOME) B2/Vits A, C, E/Lut/Zeaxanth/Min one tab p.o. every other day Aspirin 81 mg p.o. 1700 Imdur 30 mg p.o. daily Bystolic 10 mg p.o. daily Natty 5-40 mg one tab p.o. daily Synthroid 50 mcg tablet p.o. daily Miralax 17 gm p.o. daily p.r.n. Colace 100 mg p.o. b.i.d. p.r.n. ALLERGIES: NKDA PHYSICAL EXAMINATION: VITAL SIGNS: Temperature 97.8, pulse 93, BP 143/96, respiratory rate 20, oxygen sat 96% on room air. HEENT: Head has multiple bruising to the face with a large laceration approximately 6 inches on the left side of the forehead. Sutures are intact, clean and dry. No drainage, no signs of infection. Multiple bruising below the eyes, across his face. Eyes: Extraocular muscles are intact. Pupils are equal , round and reactive to light and accommodation. Ears: No lesions. Nose appeared normal. Throat: No exudate or erythema. NECK: Supple. No JVD, no carotid bruit. No lymphadenopathy or thyromegaly. LUNGS: Diminished. Clear to auscultation. Percussion note normal. Chest symmetrical. HEART: S1, S2, no S3. No murmurs. No cyanosis or clubbing. No ascites. Pulses: Dorsalis pedis and posterior tibial pulses +1 to +2 both sides. ABDOMEN: Soft. Nontender. Bowel sounds active. No CVA tenderness. No mass felt. EXTREMITIES: No edema. Full range of motion of all extremities, equal. NEUROLOGIC: The patient is oriented to person and place however not necessarily time. No focal deficit. Cranial nerves II through XII are grossly intact. No headache, no double vision or headache. SKIN: Warm and dry. Intact. Turgor - normal. LYMPHATIC: No palpable lymph nodes/no lymphedema. MUSCULOSKELETAL: Normal joints with no swelling. Muscle tone is normal. CT of the head without contrast shows no intracranial hemorrhage or skull fracture. He has small scalp hematomas and some soft tissue swelling on his forehead with cerebral atrophy. CT of the C-spine shows no evidence of fracture with degenerative changes associated with aging. Sodium 142, potassium 3.4, BUN 13, creatinine 1.07, AST 28, ALT 31, alkaline phosphatase 53. White count 13.27, hemoglobin 13.8, hematocrit 37.8, platelets 176. ASSESSMENT: 1. STATUS POST FALL 2. TRAUMATIC HEAD INJURY 3. ANEMIA 4. DEMENTIA 5. UNSTEADINESS PLAN: 1. Will admit to the floor 2. Routine telemetry 3. CBC, CMP daily 4. Ancef 1 gm q.8hr 5. Will start on potassium 40 mEq b.i.d. 6. Neurochecks q.4hr 7. Continue home medications 8. Toradol 30 mg IV q.8hr for pain 9. Fall precautions 10. MRI of the brain with contrast today TIME SPENT: More than 70 minutes. MTDD
--- NOTE | 2017-07-30 11:10 | PN ---
DATE OF SERVICE: 07/27/17 SUBJECTIVE: The patient was hospitalized with head injury and laceration on the left scalp area almost 4-5 inches. His face is slightly swollen. His pupils are equal and reactive to light normally. Completes PLATE PREPARER is normal. The patient is up and about somewhat unsteady. The daughter is present in the room. The patient's over all otherwise status is stable. MRI reports pending with contrast. CT scan of the head was negative. The patient was seen and examined with the Nurse Practitioner. TIME SPENT: More than 30 minutes. Plan and coordination of the patient's care discussed in the presence of nurse. WARD
--- NOTE | 2017-07-30 11:39 | PN ---
DATE OF SERVICE: 07/28/17 SUBJECTIVE: The patient was hospitalized with head injury with fall. The patient is feeling a lot better. He is up and about. He has laceration 4-5 inches on the forehead. He still has ecchymosis and swollen face which is much less. His pupils are equal and reactive to light normally. PHYSICAL EXAMINATION: HEENT: Head normocephalic, atraumatic. Eyes: Extraocular muscles are intact. Pupils are equal, round and reactive to light and accommodation. Ears: No lesions. Nose appeared normal. Throat: No exudate or erythema. NECK: Supple. No JVD, no carotid bruit. No lymphadenopathy or thyromegaly. LUNGS: Clear to auscultation. Percussion note normal. Chest symmetrical. HEART: S1, S2, no S3. No murmurs. No cyanosis or clubbing. No ascites. Pulses: Dorsalis pedis and posterior tibial pulses +1 to +2 both sides. ABDOMEN: Soft. Nontender. Bowel sounds active. No CVA tenderness. No mass felt. EXTREMITIES: No edema. Full range of motion of all extremities, equal. NEUROLOGIC: No focal deficit. Cranial nerves II through XII are grossly intact. No headache, no double vision or headache. SKIN: Not dry. Intact. Turgor - normal. LYMPHATIC: No palpable lymph nodes/no lymphedema. MUSCULOSKELETAL: Normal joints with no swelling. Muscle tone is normal. The patient was seen and examined with Nurse Practitioner. CONDITION: Stable PLAN: 1. His hypokalemia was treated with potassium supplements 2. The patient is advised to stay home until he is seen in the office again. 3. Head injury precautions discussed with the family TIME SPENT: More than 30 minutes. Plan and coordination of the patient's care discussed in the presence of nurse. WARD
--- NOTE | 2017-07-30 11:40 | PN ---
07/26/17: Level 5 07/27/17: Intermediate 07/28/17: D as in discharge MTDD
--- NOTE | 2017-08-19 12:00 | DS ---
DATE OF SERVICE: 07/28/17 FINAL DIAGNOSIS: 1. OPEN HEAD INJURY FROM GROUND LEVEL FALL AT HOME 2. LEFT FOREHEAD LACERATION, 2 INCH 3. HYPOKALEMIA, TREATED. 4. HISTORY OF FREQUENT FALLS AT HOME 5. THROMBOCYTOPENIA 6. CORONARY ARTERY DISEASE/STATUS POST HEART CATHETERIZATION-DR. TRAN 2013 ( [place]) 7. HYPERTENSION 8. DYSLIPIDEMIA 9. ANEMIA 10. HYPOTHYROIDISM 11. GASTROESOPHAGEAL REFLUX DISEASE 12. HISTORY OF EHRLICHIA 01/23 13. MACULAR DEGENERATION, 1998 ONSET OF SYMPTOMS 14. EARLY DEMENTIA 15. PROSTATE CANCER, [facility] MCDANIEL 1994 16. OSTEOARTHRITIS OF BACK AND HANDS Holter Monitor 01/10/14 - Basic rhythm sinus, rates 50-130, average 65/min. PVC 's 3% some interpolated, no V tach. No ST T wave changes from baseline. No activity log maintained. 2 D and M mode echocardiogram 01/14/14, left ventricular hypertrophy-moderate, borderline left atrial cavity enlargement, hypokinetic inferior posterior wall, left ventricular ejection fraction 59%, valves normal. VITAL SIGNS AT DISCHARGE: Temperature 98.2, pulse 68, respiratory rate 20, blood pressure 148/81 and oxygen saturation 96%. HOME MEDICATIONS: Amlodipine 5/40 mg daily Aspirin 81 mg EC (Hold until further notice by Dr. Roque) I Caps one every other day Colace 100 mg daily Imdur 30 mg daily Synthroid 50 mcg daily in the morning Bystolic 10 mg daily ALLERGIES: no known drug allergies NEW PRESCRIPTIONS: Keflex 500 mg one three times daily for 7 days. SMOKER: Former, none now. DISEASE SPECIFIC EDUCATIONS: About falls at home, PT, open head injuries, hypokalemia, home medications, new prescriptions, rolling walker and follow up. LABS: Potassium 3.4, glucose 118, WBC 9.48, hemoglobin 11.7, hematocrit 33.2, BUN 13, creatinine 1.04, glucose 118. PLAN: 1. Discharge home today. 2. Return to office to see Dr. Roque in 5-7 days. Please phone the office to schedule for follow up appointment at [phone]. 3. Your sutures will be removed during the appointment with Dr. oRque. 4. [facility] in [place], [place] will phone to schedule your PT appointments [phone]. 5. You will be given an prescription to obtain a rolling walker. [facility] in [place] has informed us that they have a rolling walker available for purchase if you so desire. 6. Resume home medications as per the list provided by the nursing staff. 7. New prescription: Keflex 500 mg one capsule three times a day for 7 days. 8. Activity: Get plenty of rest at home. Gradually increase your activity level according to your toleration. zuse the rolling walker to ambulate safely. 9. Diet: Healthy heart. HOSPITAL COURSE: This is a 89-year-old white male who presented to the emergency room via ambulance after falling at home while trying to feed the birds. He had a laceration to the left side of his forehead approximately 6 inches with multiple bruises on his face, beneath both eyes. There were no other lacerations with exception of his forehead. He was subsequently admitted, sutures were placed in his forehead. He was started on Ancef IV to prevent infection. His potassium was slightly low today on day of discharge at 3.4. We have given him 40 mEq b.i.d. today before discharge. He has a history of ataxia and falls frequently at home. He has a history of dizziness. He stated that he just slipped and fell losing his footing. His CT of the brain and MRI of the brain were both normal showing no acute changes, no hematomas. No bleeding of the brain, just soft tissue swelling which is visible on his face. He was placed on telemetry which shows basic sinus rhythm. He has been alert and oriented. He does have some bouts of confusion related to dementia, is oriented to person and place most of the time; however, not always time. His labs have been stable. There was no change in hemoglobin during his hospital stay. Today, on day of discharge, hemoglobin 11.7, hematocrit 33.2, white count 9.48, platelets 160, sodium 140, potassium 3.4, BUN 13, creatinine 1.04, glucose 118. We will discharge him home on Keflex 500 mg p.o. t.i.d. for the next 7 days as a preventative for infection. He is to return to the office within the next week for followup and to have his sutures removed on his forehead. He is to keep the area clean and dry. It can remain uncovered. He has been given a prescription for a rolling walker at home. He was evaluated by Physical Therapy here in the hospital and they think that he qualifies so we will arrange for him to have physical therapy while at home. His daughter has been present during his entire hospital stay and is very involved with care, lives near her parents. He currently resides at home with his . He will be returning home. He has been up and about going to the restroom. He denies any dizziness. He is alert and oriented this morning and states he would like to return home. His vital signs have been stable. Temperature 98.5, heart rate 61, respirations 18, BP 127/75, pulse ox 95%. CT of the neck was also done and showed no fracture or acute issues so he will be discharged home with his head injury. He is showing no signs of concussion. No dizziness. No nausea. No headache. No changes in vision. Neuro checks have all been normal. He will be discharged home in stable condition and we will follow up with him next week. TIME SPENT: More than 60 minutes. WARD
== END 2017-07-28 12:43 | disposition home or self-care (01) | DRG 605 ==
LOC: ED 15:57 → MEDSURG B 20:16
PROVIDERS: ADMIT Internal Medicine; ATTEND Internal Medicine
PROC: 0HQ1XZZ Repair Face Skin, External Approach (ICD-10-PCS; principal; 2017-07-26)
DX: S01.81XA Laceration without foreign body of other part of head, initial encounter (principal); F05 Delirium due to known physiological condition; E87.6 Hypokalemia; D69.6 Thrombocytopenia, unspecified; I25.10 Atherosclerotic heart disease of native coronary artery without angina pectoris; I10 Essential (primary) hypertension; E78.5 Hyperlipidemia, unspecified; D64.9 Anemia, unspecified; E03.9 Hypothyroidism, unspecified; K21.9 Gastro-esophageal reflux disease without esophagitis; F03.90 Unspecified dementia, unspecified severity, without behavioral disturbance, psychotic disturbance, mood disturbance, and anxiety; M47.9 Spondylosis, unspecified; M19.042 Primary osteoarthritis, left hand; M19.041 Primary osteoarthritis, right hand; W00.0XXA Fall on same level due to ice and snow, initial encounter; Z91.81 History of falling; Z79.899 Other long term (current) drug therapy; Z86.19 Personal history of other infectious and parasitic diseases; Z85.46 Personal history of malignant neoplasm of prostate
CPT/HCPCS: 36415; 80053; 85025; 90471; 90715; 93005; 93010; 96365; 99223; 99232; 99239; 99284

== ENCOUNTER 2021-04-08 11:12 | Inpatient (IN) ==
[2021-04-08 12:03] LABS: BORDETELLA PARAPERTUSSIS (PCR) NOT DETECTED (NOT DETECT); BORDETELLA PERTUSSIS (PCR) NOT DETECTED (NOT DETECT); CHLAMYDIA PNEUMONIAE (PCR) NOT DETECTED (NOT DETECT); CORONAVIRUS 229E (PCR) NOT DETECTED (NOT DETECT); CORONAVIRUS HKU1 (PCR) NOT DETECTED (NOT DETECT); CORONAVIRUS NL63 (PCR) NOT DETECTED (NOT DETECT); CORONAVIRUS OC43 (PCR) NOT DETECTED (NOT DETECT); HUMAN METAPNEUMOVIRUS (PCR) NOT DETECTED (NOT DETECT); INFLUENZA B (PCR) NOT DETECTED (NOT DETECT); MYCOPLASMA PNEUMONIAE (PCR) NOT DETECTED (NOT DETECT); PARAINFLUENZA VIRUS 1 (PCR) NOT DETECTED (NOT DETECT); PARAINFLUENZA VIRUS 2 (PCR) NOT DETECTED (NOT DETECT); PARAINFLUENZA VIRUS 3 (PCR) NOT DETECTED (NOT DETECT); PARAINFLUENZA VIRUS 4 (PCR) NOT DETECTED (NOT DETECT); RESPIRATORY SYNCYTIAL V (PCR) NOT DETECTED (NOT DETECT); SARS_COV_2 (PCR) NOT DETECTED (NOT DETECT)
[2021-04-08 12:54] LABS: ADENOVIRUS (PCR) NOT DETECTED (NOT DETECT); HUMAN RHINOVIRUS/ENTEROV (PCR) DETECTED (NOT DETECT)
[2021-04-08 13:55] VITALS: BMI 25.5
[2021-04-08] MEDS ORDERED: ATROPINE SULFATE PFS IVP PRN (14:46)
[2021-04-08] MEDS ORDERED: NITROSTAT SL PRN (14:46)
[2021-04-08] MEDS ORDERED: TYLENOL PO PRN (14:46)
[2021-04-08 15:05] LABS: BASOPHILS # (AUTO) 0.1 K/uL (0-0.2); BASOPHILS % (AUTO) 0.7 % (0.0-3.0); EOSINOPHILS # (AUTO) 0.2 K/ul (0.0-0.7); EOSINOPHILS % (AUTO) 2.4 % (0.0-7.0); HEMATOCRIT 40.7 % (42.0-52.0); HEMOGLOBIN 13.8 g/dl (14.0-18.0); IMMATURE GRANULOCYTE # (AUTO) 0.2 (0.0-1.0); IMMATURE GRANULOCYTE % (AUTO) 1.6 % (0.0-5.0); LYMPHOCYTES # (AUTO) 1.8 K/uL (0.60-3.4); LYMPHOCYTES % (AUTO) 17.9 (10.0-50.0); MEAN CORPUSCULAR HEMOGLOBIN 30.7 pg (27.0-31.0); MEAN CORPUSCULAR HGB CONC 33.9 (31.8-35.4); MEAN CORPUSCULAR VOLUME 90.6 fl (80.0-94.0); MONOCYTES # (AUTO) 0.6 K/uL (0.4-2.0); MONOCYTES % (AUTO) 5.5 (0-10); NEUTROPHILS # (AUTO) 7.2 K/ul (2.0-6.9); NEUTROPHILS % (AUTO) 71.9 % (42.2-75.2); PLATELET COUNT 204 10^3/uL (140-440); RED BLOOD COUNT 4.49 10^6/ul (4.70-6.10); WHITE BLOOD COUNT 10.03 K/ul (4.2-10.2)
--- NOTE | 2021-04-08 15:14 | DI ---
EXAM: Chest one view, frontal view only. HISTORY: Shortness of breath. COMPARISON: 04/05/2021. FINDINGS: The heart size is at the upper limits of normal. There is no pulmonary vascular congestio n. The lungs are clear. No pleural effusion or pneumothorax is seen. No acute osseous abnormality is identified. Since the prior study, there has been no significant interval change. IMPRESSION: No acute cardiopulmonary process.
[2021-04-08 15:23] LABS: ALANINE AMINOTRANSFERASE 22.5 U/L (0-50); ALBUMIN 4.11 g/dL (3.5-5.0); ALKALINE PHOSPHATASE 53.1 U/L (56-119); ASPARTATE AMINO TRANSFERASE 25.9 U/L (17-59); BILIRUBIN,TOTAL 0.66 mg/dL (0.2-1.3); BLOOD UREA NITROGEN 18.9 mg/dL (9-20); CALCIUM 8.63 mg/dL (8.4-10.2); CARBON DIOXIDE 24.2 mmol/L (22-30.0); CREATININE 0.93 mg/dL (0.60-1.10); POTASSIUM 3.85 mmol/L (3.5-5.1); SODIUM 139.2 mmol/L (134.5-145); TOTAL PROTEIN 6.77 g/dL (6.3-8.2)
[2021-04-08] MEDS: SODIUM CHLORIDE 1,000 ML IV SCH (15:57)
[2021-04-08] MEDS: ROCEPHIN 1 GM/50 ML D5W 1 GM/50 ML BAG IV SCH (15:57)
[2021-04-08] MEDS: DECADRON IM SCH (16:05)
--- NOTE | 2021-04-08 17:06 | RS.OTINEVL ---
Subjective - Patient information Date of Evaluation: 05/28/18 Date of Arrival on Unit: 04/08/21 Admitted From:: Direct Admit Diagnosis: Acute bronchitis, dehydration, PRECAUTIONS: Fall precautions Usual Living Arrangement: With Spouse Living Arrangement Comments: lives at home with Home Environment: House, Stairs (few), Rail, Ramp Medical History: Hypertension, Dementia, Arthritis, Cancer (prostate) Medical History Comments:: Bronchitis, dehydration, Open head injury from recent fall with subdural hemorrhage. hx of frequent falls, CAD, HTN, dementia. LATEX ALLERGY?: No Surgical History Comments:: heart cath Medications: see chart Subjective Information/ Patient Comments:: Pt reports he has his as a caregiver and 2 others. Pt reports he uses a Walker at home. Pt reports he has assistance for bed mobility. - Level of function Prior to this admission, the patient could do the following:: Independent Ambulation Abilities prior to this admission: Pt requires Caregivers around the clock at home for all ADLs. Current Equipment Used at Home: Rollater, shower chair. Pain Assessment - Pain Pain Score: 0 Interventions - Objective Patient Orientation: Person Current Interventions: IV's Observation: Pt min to Mod Assist with supine to sit. Pt minimal assistance x2 to walk with Rollator walker. Pt appears impulsive and moves quickly with rollator walker. Pt is weak and requires assistance for functional mobility. Interventions - ROM Right Upper Extremity AROM: Slight limitation Left Upper Extremity AROM: Slight limitation - Strength Right Upper Extremity Strength: Mild Weakness Left Upper Extremity Strength: Mild Weakness - Sensation Right Upper Extremity Sensation: Intact/Normal Left Upper Extremity Sensation: Intact/Normal Balance - Sitting Balance Static Sitting Balance: Fair Dynamic Sitting Balance: Fair - Standing Balance Static Standing Balance: Poor Dynamic Standing Balance: Poor ADL Skills - Self Feeding Self Feeding: Set Up Only - Grooming Grooming: Min Assist Grooming Set-up: Sitting - Bathing Bathing UE: Min Assist Bathing LE: Min Assist Bathing Set-up: Sitting - Dressing Dressing UE: Min Assist Dressing LE: Max Assist - Toilet Management Toilet Hygiene: Min Assist Toilet Clothing Management: Min Assist Functional Mobility - Bed Mobility Rolling R/L: Min Assist Supine to Sit: Mod Assist - Transfers Sit to Stand: Min Assist LESTER INDEX SCORE: . Additional Treatment Performed - Time with patient Length of Evaluation: 18 Total treatment time: 20 Activities Do you enjoy playing games?: Yes Would you be interested in leaving your room for activities?: Yes Would you enjoy group activities?: Yes Patient Interests:: Watching Television, Visiting/Socializing Patient Education Patient Education: Education of diagnosis, Education of Plan of Care Teaching Recipient: Patient Teaching Methods: Discussion Assessment Problem List:: Decreased level of function, Requires training/education, Decreased safety/Risk of falls, Weakness, Cognitive status limits abilities Rehab Potential: Fair Further Therapy Indicated?: Yes Evaluation Complexity: HISTORY: Medium, EXAM OF BODY SYSTEMS: Medium, CLINICAL DECISION MAKING: Medium Patient's Goal(s): To get stronger and go back home. Short Term Goals - Goals GOAL 1: Pt to complete functional mobility CGA with RW. Goal to be met by: 04/15/21 GOAL 2: Pt to complete toileting transfer CGA with RW. Goal to be met by: 04/15/21 GOAL 3: Pt to complete sink level ADLS CGA. Goal to be met by: 04/15/21 GOAL 4: Pt to increase dyn. std. balance to 5 minutes with activity. Goal to be met by: 04/15/21 Analyst [employer] Goals GOAL 1: Pt to complete toileting with RW with SBA. Goal to be met by: 04/19/21 GOAL 2: Pt to increase independence of sink level ADLS to SBA. Goal to be met by: 04/19/21 GOAL 3: Pt to increase dyn. std. bal. to 10 minute with activity. Goal to be met by: 04/19/21 Plan Plan of Care: Therapeutic EX, Therapeutic Activity, Self-Care/Home Management Frequency of Treatment: 1-2 X day, as tolerated Duration of Treatment: 2 Weeks Anticipated Discharge Destination: Home Treatment Diagnosis (ICD 10 Codes): Weakness R53.1, Z74.1 Need for help with personal care. Has the Physician been added for Co-signature?: Yes
[2021-04-08] MEDS: K-DUR PO SCH (17:14)
[2021-04-08 18:03] LABS: BILIRUBIN,URINE Negative (NEGATIVE); CLARITY,URINE Clear (CLEAR); COLOR,URINE Yellow (YELLOW); GLUCOSE, URINE (UA) Negative (NEGATIVE); KETONES,URINE Negative (NEGATIVE); LEUKOCYTE ESTERASE ,URINE Negative (NEGATIVE); NITRITE,URINE Negative (NEGATIVE); PH,URINE 7.5 (5-9); PROTEIN,URINE Negative (NEGATIVE); URINE, BLOOD Negative (NEGATIVE); UROBILINOGEN,URINE 0.2 (0.2)
[2021-04-08] MEDS: MUCINEX DM ER 600-30 MG TABLET PO SCH (20:06)
[2021-04-08] MEDS: ATIVAN PO PRN (20:07)
[2021-04-08] MEDS ORDERED: MIRALAX PO SCH (21:00)
[2021-04-09] MEDS: SODIUM CHLORIDE 1,000 ML IV SCH (04:48)
[2021-04-09 05:23] LABS: BASOPHILS # (AUTO) 0.1 K/uL (0-0.2); BASOPHILS % (AUTO) 0.5 % (0.0-3.0); EOSINOPHILS % (AUTO) 0.1 % (0.0-7.0); HEMATOCRIT 41.4 % (42.0-52.0); HEMOGLOBIN 13.8 g/dl (14.0-18.0); IMMATURE GRANULOCYTE # (AUTO) 0.2 (0.0-1.0); IMMATURE GRANULOCYTE % (AUTO) 1.4 % (0.0-5.0); MEAN CORPUSCULAR HEMOGLOBIN 30.4 pg (27.0-31.0); MEAN CORPUSCULAR HGB CONC 33.3 (31.8-35.4); MEAN CORPUSCULAR VOLUME 91.2 fl (80.0-94.0); MONOCYTES # (AUTO) 0.5 K/uL (0.4-2.0); MONOCYTES % (AUTO) 4.2 (0-10); NEUTROPHILS # (AUTO) 9.7 K/ul (2.0-6.9); NEUTROPHILS % (AUTO) 77.8 % (42.2-75.2); PLATELET COUNT 214 10^3/uL (140-440); RED BLOOD COUNT 4.54 10^6/ul (4.70-6.10); WHITE BLOOD COUNT 12.44 K/ul (4.2-10.2)
[2021-04-09 05:34] LABS: ALANINE AMINOTRANSFERASE 23.8 U/L (0-50); ALBUMIN 4.01 g/dL (3.5-5.0); ALKALINE PHOSPHATASE 54.4 U/L (56-119); ASPARTATE AMINO TRANSFERASE 25.2 U/L (17-59); BILIRUBIN,TOTAL 0.56 mg/dL (0.2-1.3); BLOOD UREA NITROGEN 15.9 mg/dL (9-20); CALCIUM 9.15 mg/dL (8.4-10.2); CARBON DIOXIDE 21.9 mmol/L (22-30.0); CHLORIDE 106.1 mmol/L (98-107); CREATININE 0.81 mg/dL (0.60-1.10); GLUCOSE 120.2 mg/dL (74-106); POTASSIUM 4.13 mmol/L (3.5-5.1); SODIUM 137.7 mmol/L (134.5-145); TOTAL PROTEIN 6.76 g/dL (6.3-8.2)
[2021-04-09] MEDS: SYNTHROID PO SCH (06:12)
[2021-04-09] MEDS: MUCINEX DM ER 600-30 MG TABLET PO SCH ×2 (08:47→20:20)
[2021-04-09] MEDS: IMDUR PO SCH (08:47)
[2021-04-09] MEDS: COLACE PO SCH (08:47)
[2021-04-09] MEDS: DECADRON IM SCH (08:48)
[2021-04-09] MEDS: MIRALAX PO SCH (08:48)
[2021-04-09] MEDS: K-DUR PO SCH ×2 (08:48→17:03)
[2021-04-09] MEDS: COZAAR PO SCH (08:48)
[2021-04-09] MEDS: ROCEPHIN 1 GM/50 ML D5W 1 GM/50 ML BAG IV SCH (08:49)
--- NOTE | 2021-04-09 09:16 | PCM.PROG ---
Attending Provider: ATTENDING PROVIDER: Dr. KENNETH THOMPSON This patient is seen with Josefina Barnhart, Nurse Practitioner. DATE OF SERVICE: 04/09/21 SUBJECTIVE: This 89 year old /WHITE M was hospitalized 04/08/21. The patient is resting comfortably in bed. He is pleasantly confused. He ate supper well yesterday. He was restless, up and down through the night. REVIEW OF SYSTEMS: CONSTITUTIONAL: Weakness. No night sweats. No fatigue, malaise, lethargy. No fever or chills. HEENT: Eyes: No visual changes. No eye pain. No eye discharge. ENT: No runny nose. No epistaxis. No sinus pain. No odynophagia. No congestion. RESPIRATORY: Cough. No hemoptysis. No shortness of breath. CARDIOVASCULAR: No angina symptoms. No CHF symptoms. No atypical chest pain for CAD. No palpitations. No orthopnea.. GASTROINTESTINAL: No abdominal pain. No nausea or vomiting. No diarrhea or co nstipation. No hematemesis. No hematochezia. GENITOURINARY: No urgency. No frequency. No dysuria. No hematuria. No obstructive symptoms. No discharge. No pain. No significant abnormal bleeding. MUSCULOSKELETAL: No musculoskeletal pain; no joint swelling. NEUROLOGICAL: Awake, alert, confusion. No headache. No neck pain. No syncope. No seizures. No dizziness. PSYCHIATRIC: Not anxious. No depression. No suicidal thoughts. No homicidal thoughts. SKIN: No rash. No lesions. No wounds. ENDOCRINE: No unexplained weight loss. No weight gain. HEMATOLOGIC/LYMPHATIC: No anemia. No purpura. No petechiae. No prolonged or excessive bleeding. No palpable lymph nodes. PHYSICAL EXAMINATION: GENERAL: The patient is awake, alert and oriented to person, lying/sitting in bed in no distress. VITAL SIGNS: Temperature 97.7 F, Pulse 55, Respiratory Rate 18, BP 161/76, Pulse Ox 95% HEENT: Head normocephalic, atraumatic. Eyes: Extraocular muscles are intact. Pupils are equal, round and reactive to light and accommodation. Ears: No lesions. Nose appeared normal. Throat: No exudate or erythema. NECK: Supple. No JVD, no carotid bruit. No lymphadenopathy or thyromegaly. LUNGS: Diminished breath sounds. Clear to auscultation. Percussion note normal. Chest symmetrical. HEART: S1, S2, no S3. No murmurs. No cyanosis or clubbing. No ascites. Pulses: Dorsalis pedis and posterior tibial pulses +1 to +2 both sides. ABDOMEN: Soft. Non-tender. Bowel sounds active. No CVA tenderness. No mass felt. EXTREMITIES: No edema. Full range of motion of all extremities, equal. NEUROLOGIC: No focal deficit. Cranial nerves II through XII are grossly intact. No headache. No double vision. SKIN: Not dry. Intact. Turgor-normal. LYMPHATIC: No palpable lymph nodes/no lymphedema. MUSCULOSKELETAL: Normal joints with no swelling. Muscle tone is normal. LAB REVIEW: 04/09/21 04:38 04/09/21 04:38 04/09/21 04:38: Sodium 137.7, Potassium 4.13, Chloride 106.1, Carbon Dioxide 21.9 L, Anion Gap 13.83, BUN 15.9, Creatinine 0.81, Estimated GFR (MDRD) 90.00, BUN/Creatinine Ratio 19.62, Glucose 120.2 H, Calcium 9.15, Total Bilirubin 0.56, AST 25.2, ALT 23.8, Alkaline Phosphatase 54.4 L, Total Protein 6.76, Albumin 4.01, Globulin 2.75, Albumin/Globulin Ratio 1.45 04/09/21 04:38: WBC 12.44 H, RBC 4.54 L, Hgb 13.8 L, Hct 41.4 L, MCV 91.2, MCH 30.4, MCHC 33.3, RDW Coeff of Stacy 14.0, Plt Count 214, Immature Gran % (Auto) 1.4, Neut % (Auto) 77.8 H, Lymph % (Auto) 16.0, Duc[place]ne % (Auto) 4.2, Eos % (Auto) 0.1, Baso % (Auto) 0.5, Neut # (Auto) 9.7 H, Lymph # (Auto) 2.0, Duchesne # (Auto) 0.5, Eos # (Auto) 0.0, Baso # (Auto) 0.1, Immature Gran # (Auto) 0.2 04/08/21 17:50: Urine Color Yellow, Urine Clarity Clear, Urine pH 7.5, Ur Specific [place] 1.020, Urine Protein Negative, Urine Glucose (UA) Negative, Urine Ketones Negative, Urine Blood Negative, Urine Nitrite Negative, Urine Bilirubin Negative, Urine Urobilinogen 0.2, Ur Leukocyte Esterase Negative 04/08/21 15:00: Sodium 139.2, Potassium 3.85, Chloride 104.0, Carbon Dioxide 24.2, Anion Gap 14.85, BUN 18.9, Creatinine 0.93, Estimated GFR (MDRD) 77.00, BUN/Creatinine Ratio 20.32, Glucose 131.0 H, Calcium 8.63, Total Bilirubin 0.66, AST 25.9, ALT 22.5, Alkaline Phosphatase 53.1 L, Total Protein 6.77, Albumin 4.11, Globulin 2.66, Albumin/Globulin Ratio 1.54 04/08/21 15:00: WBC 10.03, RBC 4.49 L, Hgb 13.8 L, Hct 40.7 L, MCV 90.6, MCH 30.7, MCHC 33.9, RDW Coeff of Stacy 14.0, Plt Count 204, Immature Gran % (Auto) 1.6, Neut % (Auto) 71.9, Lymph % (Auto) 17.9, Duchesne % (Auto) 5.5, Eos % (Auto) 2.4, Baso % (Auto) 0.7, Neut # (Auto) 7.2 H, Lymph # (Auto) 1.8, Duchesne # (Auto) 0.6, Eos # (Auto) 0.2, Baso # (Auto) 0.1, Immature Gran # (Auto) 0.2 04/08/21 11:50: Adenovirus (PCR) Not detected, B. pertussis DNA (PCR) Not detected, B.parapertussis DNA PCR Not detected, C. pneumoniae DNA (PCR) Not detected, Coronavirus OC43 (PCR) Not detected, Coronavirus HKU1 (PCR) Not detected, Coronavirus 229E (PCR) Not detected, Coronavirus NL63 (PCR) Not detected, Human Metapneumovir PCR Not detected, Influenza Type A (PCR) Not detected, Influenza B (RT-PCR) Not detected, M. pneumoniae (PCR) Not detected, Parainfluenza 1 (PCR) Not detected, Parainfluenza 2 (PCR) Not detected, Parainfluenza 3 (PCR) Not detected, Parainfluenza 4 (PCR) Not detected, RSV (PCR) Not detected, Entero/Rhino (PCR) Detected H, SARS-CoV-2 (PCR) Not detected ASSESSMENT: Please see below. 1. Acute bronchitis. 2. Dehydration. 3. Dementia with behavioral disturbance. 4. Hypertension. 5. Anxiety. PLAN: 1. Discontinue IV fluids after this bag. 2. Start Prednisone 20 mg p.o. tomorrow. Plan and coordination of the patient's care discussed in the presence of Message And Delivery Service Pricer and nurse. CONDITION: Stable SCRIBED BY: AMI HANNAH Music Store Manager scribed while in presence of service performed by Dr. Thompson/Josefina Barnhart APRN on 04/09/21 (0800)
--- NOTE | 2021-04-09 09:58 | HP ---
DATE OF SERVICE: 04/08/21 REASON FOR HOSPITALIZATION/HISTORY OF PRESENT ILLNESS: 89-year-old male with cough and congestion times one week. Negative for Covid last week. Positive for Enterovirus. He is still coughing with weakness, shortness of breath and is more confused. He is getting agitated in the afternoon. PAST MEDICAL HISTORY: Hypertension Dementia Hypothyroidism History of prostate cancer, 1984 Ataxia PAST SURGICAL HISTORY: Gallbladder 1980s Cataract Craniotomy Subdural hematoma REVIEW OF SYSTEMS: CONSTITUTIONAL: Positive for fatigue. No fever. HEENT: Positive for sinus drainage. No sore throat. RESPIRATORY: Cough, no hemoptysis. CARDIOVASCULAR: No atypical chest pain for coronary artery disease. No angina, CHF symptoms, palpitations or shortness of breath. GASTROINTESTINAL: No melena or abdominal pain. No GERD. GENITOURINARY: No hematuria, no prostatism, no polyuria. MANUFACTURER: Positive for unsteady gait. No blackout, no dizziness, no headache, no double vision. MUSCULOSKELETAL: Osteoarthritis pain. No joint swelling. ENDOCRINE: No weight loss, no weight gain. SKIN: Not dry, no rash. PSYCHIATRIC: Not anxious, no depression, no suicidal thoughts, no homicidal thoughts. SOCIAL HISTORY: Nonsmoker. to [place], 64 years. Three girls, healthy. No alcohol use. Retired from [employer]. FAMILY HISTORY: Father CAD, colon cancer, thyroid, [place]. Mother , CAD, [place]. No brothers, no sisters. MEDICATIONS: Colace daily Miralax daily Nitroglycerin p.r.n. Synthroid 50 mcg one daily Zebeta 10 mg one daily Isosorbide 30 mg one daily Losartan 100 mg one daily K tabs 20 mg b.i.d. Caltrate 600 mg daily Vitamin C and Zinc daily Thursday - Amoxicillin 875 mg b.i.d. Mucinex Covid Vaccine times two - Moderna ALLERGIES: NAMENDA (RASH), ARICEPT PHYSICAL EXAMINATION: V/S: Pulse 60, BP 118/74, temperature 97.9, 02 sat 98%. Height 5'5". GENERAL APPEARANCE: Oriented to person only. HEENT: Normal. NECK: No JVP, no bruits. RESPIRATORY: Lungs - decreased breath sounds. CARDIOVASCULAR: S1, S2, no S3, Grade I/ murmur. No cyanosis, clubbing. No ascites. GI/ABDOMEN: No tenderness. Bowel sounds are active. EXTREMITIES: No edema, pulses +1, equal. MANUFACTURER: Deep tendon reflexes, sensory, motor and gait all normal. RECTAL/PROSTATE: Prostate 08/29 (0.1). Colonoscopy: 02/22 Dr. Leyva. ASSESSMENT: 1. ACUTE BRONCHITIS 2. DEHYDRATION 3. DEMENTIA WITH BEHAVIORAL DISTURBANCE 4. INCREASED FALLS 5. DEMENTIA- ADVANCED 6. HYPERTENSION 7. LVH 8. HYPOTHYROIDISM 9. HISTORY OF CA OF THE PROSTATE 10. S/P RIGHT CATARACT SURGERY 03/31 - [facility] 11. CHRONIC BRONCHITIS 12. SUBDURAL HEMATOMA S/P CRANIOTOMY 13. ATAXIA 14. CORONARY ARTERY DISEASE 15. CHRONIC KIDNEY DISEASE, STAGE 3 16. B12 DAILY 17. THROMBOCYTOPENIA 18. S/P CATH 08/26 19. COVID VACCINE TIMES TWO - MODERNA PLAN: 1. Routine telemetry orders-no cardiac markers 2. CBC, CMP now and daily 3. Continue home medications 4. Rocephin 1 gm IV daily 5. NS IV @ 75 cc times 2L 6. Regular diet 7. 1 cc Decadron IM today and tomorrow 8. Ativan 0.5 mg b.i.d. p.r.n. 9. UA 10. Chest x-ray 11. Fall precautions 12. 02 1-2L/NC TIME SPENT: More than 70 minutes. MTDD
--- NOTE | 2021-04-09 10:24 | RS.PTINEVL ---
Subjective - Patient information Date of Evaluation: 04/08/21 Date of Arrival on Unit: 04/08/21 Admitted From:: Home Diagnosis: dehydration, acute bronchitis Usual Living Arrangement: With Spouse Living Arrangement Comments: pt lives with and they have 2 caregivers for he and his Home Environment: House, Ramp Medical History: Hypertension, Dementia, Arthritis, Cancer (prostate ) Medical History Comments:: hypothyroid, macular degeneration, ataxia, falls, L ventricular hypertrophy, subdural hematoma, thrombocytopenia, Surgical History Comments:: craniotomy Medications: see chart Subjective Information/ Patient Comments:: pt states that he is doing 'ok". He states he would like to walk. He reports he uses a rollator at home. - Level of function Prior to this admission, the patient could do the following:: Partially Dependent Ambulation Abilities prior to this admission: pt has caregivers that assist with ADL's Current Level of Function: Partially Dependent Current Equipment Used at Home: Rollater, shower chair. Interventions - Objective Patient Orientation: Person (pt oriented to person only, pt states he is in "[place]" ) Current Interventions: IV's, Telemetry Observation: pt with multiple areas of bruising on his arms. Range of Motion - ROM Right Upper Extremity AROM: WFL's Left Upper Extremity AROM: WFL's Right Lower Extremity AROM: WFL's Left Lower Extremity AROM: WFL's Muscle Strength - Muscle Strength Right Upper Extremity Strength: Mild Weakness (grossly 4-/5) Left Upper Extremity Strength: Mild Weakness (grossly 4-/5) Right Lower Extremity Strength: Mild Weakness (hip flex 4-/5, knee flex 4/5, ext 4-/5, ankle Df/PF 4/5) Left Lower Extremity Strength: Mild Weakness (hip flex 4-/5, knee flex 4/5, ext 4-/5, ankle Df/PF 4/5) Sensation - Sensation Right Upper Extremity Sensation: Intact/Normal Left Upper Extremity Sensation: Intact/Normal Right Lower Extremity Sensation: Intact/Normal Left Lower Extremity Sensation: Intact/Normal Palpation Palpation Findings: None/Normal Balance - Sitting Balance and Reactions Static Sitting Balance: Fair Dynamic Sitting Balance: Poor - Standing Balance and Reactions Static Standing Balance: Poor Dynamic Standing Balance: Poor Standing Equilibrium Reactions: Delayed Left, Delayed Right Standing Protective Reactions: Delayed Left, Delayed Right Functional Mobility - Bed Mobility Rolling R/L: Min Assist Scooting: Mod Assist, Max Assist, 2 person assist Supine to Sit: Min Assist Sit to Supine: Min Assist - Transfers Sit to Stand: Min Assist, 1 person assist Stand to Sit: Min Assist, 1 person assist - Safety Awareness Safety Awareness: Poor LESTER INDEX SCORE: n/a Ambulation - Ambulation Assistive Device Used: Rollator Orthotic/Prosthetic Device: No Distance: 20ft Assistance needed with Ambulation: Min Assist, 1 person assist, 2 person assist Quality of Ambulation: pt amb with min x 1 +1 for IV. pt required assist to slow speed of ambulation. Feel pt may benefit from trying rolling walker instead of rollator. Gait Deviations: Forward posture, Short stride, Deviates from path Factors Affecting Ambulation: Decreased Balance, Weakness, Decreased Safety, Cognitive Status, Limited Endurance Treatment time - Time with patient Length of Evaluation: 20 Total treatment time: 29 Patient Education - Education Patient Education: Activity Modification, Education of Plan of Care Teaching Recipient: Patient Teaching Methods: Discussion Comments: discussion regarding POC Assessment - Assessment Problem List:: Decreased level of function, Requires training/education, Decreased safety/Risk of falls, Weakness, Cognitive status limits abilities Rehab Potential: Fair Further Therapy Indicated?: Yes Candidate for Swing Bed for Therapy Services?: Feel pt may not be a candidate for swing bed for therapy due to cognitive deficits limiting ability to retain teaching on safety. Evaluation Complexity: HISTORY: Medium, EXAM OF BODY SYSTEMS: Medium, CLINICAL PRESENTATION: Medium, CLINICAL DECISION MAKING: Medium Patient's Goal(s): get stronger Short Term Goals GOAL #1: pt demonstrate rolling and scooting in bed. Goal to be met by: 04/10/21 GOAL #2: Transfer sup to/from sit CGA Goal to be met by: 04/10/21 GOAL #3: Transfer sit to/from stand CGA Goal to be met by: 04/10/21 GOAL #4: pt amb with rwx 100ft with CGA able to control rwx. Goal to be met by: 04/10/21 GOAL #5: Improve BLE strength 4 to 4+/5 Goal to be met by: 04/10/21 GOAL #6: Improve dyn sitting balance fair + Goal to be met by: 04/10/21 Care Home Goals GOAL #1: pt transfer sup to/from sit to/from stand SBA Goal to be met by: 04/13/21 GOAL #2: pt amb functional household distances with rwx with SBA for safety Goal to be met by: 04/13/21 GOAL #3: pt with improved dyn stand balance to fair Goal to be met by: 04/13/21 Plan Plan of Care: Therapeutic EX, Therapeutic Activity Other:: gait training Frequency of Treatment: 1-2 X day, as tolerated Duration of Treatment: 5 days Anticipated Discharge Destination: Home Treatment Diagnosis (ICD 10 Codes): impaired balance R 26.81. gait difficulty R 26.2. weakness M62.81. risk of falls Z 91.81 Has the Physician been added for Co-signature?: Yes
[2021-04-09] MEDS: FLOMAX PO SCH (10:29)
[2021-04-10 04:28] LABS: BASOPHILS % (AUTO) 0.3 % (0.0-3.0); EOSINOPHILS # (AUTO) 0.1 K/ul (0.0-0.7); EOSINOPHILS % (AUTO) 0.6 % (0.0-7.0); HEMATOCRIT 36.5 % (42.0-52.0); HEMOGLOBIN 12.3 g/dl (14.0-18.0); IMMATURE GRANULOCYTE # (AUTO) 0.1 (0.0-1.0); LYMPHOCYTES # (AUTO) 2.4 K/uL (0.60-3.4); LYMPHOCYTES % (AUTO) 19.8 (10.0-50.0); MEAN CORPUSCULAR HEMOGLOBIN 30.8 pg (27.0-31.0); MEAN CORPUSCULAR HGB CONC 33.7 (31.8-35.4); MEAN CORPUSCULAR VOLUME 91.5 fl (80.0-94.0); MONOCYTES # (AUTO) 0.7 K/uL (0.4-2.0); MONOCYTES % (AUTO) 5.7 (0-10); NEUTROPHILS # (AUTO) 8.6 K/ul (2.0-6.9); NEUTROPHILS % (AUTO) 72.6 % (42.2-75.2); PLATELET COUNT 179 10^3/uL (140-440); RDW COEFFICIENT OF VARIATION 14.2 % (11.6-14.8); RED BLOOD COUNT 3.99 10^6/ul (4.70-6.10)
[2021-04-10 04:44] LABS: ALANINE AMINOTRANSFERASE 20.1 U/L (0-50); ALBUMIN 3.67 g/dL (3.5-5.0); ALKALINE PHOSPHATASE 40.2 U/L (56-119); ASPARTATE AMINO TRANSFERASE 22.4 U/L (17-59); BILIRUBIN,TOTAL 0.44 mg/dL (0.2-1.3); BLOOD UREA NITROGEN 20.1 mg/dL (9-20); CALCIUM 8.72 mg/dL (8.4-10.2); CHLORIDE 104.7 mmol/L (98-107); CREATININE 0.98 mg/dL (0.60-1.10); GLUCOSE 110.1 mg/dL (74-106); POTASSIUM 3.78 mmol/L (3.5-5.1); SODIUM 138.9 mmol/L (134.5-145); TOTAL PROTEIN 5.99 g/dL (6.3-8.2)
[2021-04-10] MEDS: SYNTHROID PO SCH (06:11)
--- NOTE | 2021-04-10 07:56 | PN ---
DATE OF SERVICE: 04/08/21 SUBJECTIVE: The patient was seen and examined with the nurse practitioner in the office. The patient was hospitalized for further treatment. The patient was in the emergency room the previous weekend and recommended being hospitalized but the family declined and went home on antibiotics. The patient's condition otherwise is stable. The patient's family wants him to go to the alf after this hospitalization. TIME SPENT: More than 30 minutes. Plan and coordination of the patient's care discussed in the presence of nurse. WARD
[2021-04-10] MEDS ORDERED: LANOXIN IVP ONE ×2 (08:35→11:42)
[2021-04-10] MEDS ORDERED: CARDIZEM PO ONE ×3 (08:37→12:00)
[2021-04-10] MEDS: MIRALAX PO SCH (09:00)
[2021-04-10] MEDS: COLACE PO SCH (09:01)
[2021-04-10] MEDS: ROCEPHIN 1 GM/50 ML D5W 1 GM/50 ML BAG IV SCH (09:01)
[2021-04-10] MEDS: MUCINEX DM ER 600-30 MG TABLET PO SCH ×2 (09:01→21:13)
[2021-04-10] MEDS: PREDNISONE PO SCH (09:01)
[2021-04-10] MEDS: FLOMAX PO SCH (09:02)
[2021-04-10] MEDS: K-DUR PO SCH ×2 (09:02→17:22)
[2021-04-10] MEDS: IMDUR PO SCH (09:02)
[2021-04-10] MEDS: COZAAR PO SCH (09:03)
[2021-04-10] MEDS: ATIVAN PO PRN ×2 (09:03→21:13)
[2021-04-10] MEDS: SODIUM CHLORIDE 1,000 ML IV SCH ×2 (09:10)
[2021-04-10] MEDS ORDERED: ELIQUIS PO STA (21:23)
[2021-04-10] MEDS ORDERED: ELIQUIS PO SCH (21:30)
[2021-04-10] MEDS: CARDIZEM PO SCH (21:50)
[2021-04-11 05:32] LABS: BASOPHILS % (AUTO) 0.3 % (0.0-3.0); EOSINOPHILS # (AUTO) 0.1 K/ul (0.0-0.7); EOSINOPHILS % (AUTO) 0.5 % (0.0-7.0); HEMATOCRIT 36.6 % (42.0-52.0); HEMOGLOBIN 12.3 g/dl (14.0-18.0); IMMATURE GRANULOCYTE # (AUTO) 0.1 (0.0-1.0); IMMATURE GRANULOCYTE % (AUTO) 1.1 % (0.0-5.0); LYMPHOCYTES # (AUTO) 2.1 K/uL (0.60-3.4); LYMPHOCYTES % (AUTO) 15.9 (10.0-50.0); MEAN CORPUSCULAR HEMOGLOBIN 30.8 pg (27.0-31.0); MEAN CORPUSCULAR HGB CONC 33.6 (31.8-35.4); MEAN CORPUSCULAR VOLUME 91.7 fl (80.0-94.0); MONOCYTES # (AUTO) 0.6 K/uL (0.4-2.0); MONOCYTES % (AUTO) 4.5 (0-10); NEUTROPHILS # (AUTO) 10.1 K/ul (2.0-6.9); NEUTROPHILS % (AUTO) 77.7 % (42.2-75.2); PLATELET COUNT 200 10^3/uL (140-440); RDW COEFFICIENT OF VARIATION 14.3 % (11.6-14.8); RED BLOOD COUNT 3.99 10^6/ul (4.70-6.10); WHITE BLOOD COUNT 13.06 K/ul (4.2-10.2)
[2021-04-11 05:52] LABS: ALANINE AMINOTRANSFERASE 20.7 U/L (0-50); ALBUMIN 3.54 g/dL (3.5-5.0); ALKALINE PHOSPHATASE 42.7 U/L (56-119); ASPARTATE AMINO TRANSFERASE 23.6 U/L (17-59); BILIRUBIN,TOTAL 0.36 mg/dL (0.2-1.3); BLOOD UREA NITROGEN 27.8 mg/dL (9-20); CALCIUM 8.8 mg/dL (8.4-10.2); CARBON DIOXIDE 23.5 mmol/L (22-30.0); CHLORIDE 105.1 mmol/L (98-107); CREATININE 1.05 mg/dL (0.60-1.10); GLUCOSE 115.8 mg/dL (74-106); POTASSIUM 3.81 mmol/L (3.5-5.1); SODIUM 138.6 mmol/L (134.5-145); TOTAL PROTEIN 5.85 g/dL (6.3-8.2)
[2021-04-11] MEDS: SYNTHROID PO SCH (06:23)
--- NOTE | 2021-04-11 09:40 | PCM.PROG ---
Attending Provider: ATTENDING PROVIDER: Dr. KENNETH THOMPSON This patient is seen with Josefina Barnhart, Nurse Practitioner. DATE OF SERVICE: 04/11/21 SUBJECTIVE: This 89 year old /WHITE M was hospitalized 04/08/21. The patient is resting comfortably. Heart rate is controlled. He still seems to be in atrial fibrillation. He is still pleasantly confused. REVIEW OF SYSTEMS: CONSTITUTIONAL: Weakness. No night sweats. No fatigue, malaise, lethargy. No fever or chills. HEENT: Eyes: No visual changes. No eye pain. No eye discharge. ENT: No runny nose. No epistaxis. No sinus pain. No odynophagia. No congestion. RESPIRATORY: No cough, no congestion. No hemoptysis. No shortness of breath. CARDIOVASCULAR: No angina symptoms. No CHF symptoms. No atypical chest pain for CAD. No palpitations. No orthopnea.. GASTROINTESTINAL: No abdominal pain. No nausea or vomiting. No diarrhea or constipation. No hematemesis. No hematochezia. GENITOURINARY: No urgency. No frequency. No dysuria. No hematuria. No obstructive symptoms. No discharge. No pain. No significant abnormal bleeding. MUSCULOSKELETAL: No musculoskeletal pain; no joint swelling. NEUROLOGICAL: Awake, alert, confusion. No headache. No neck pain. No syncope. No seizures. No dizziness. PSYCHIATRIC: Not anxious. No depression. No suicidal thoughts. No homicidal thoughts. SKIN: No rash. No lesions. No wounds. ENDOCRINE: No unexplained weight loss. No weight gain. HEMATOLOGIC/LYMPHATIC: No anemia. No purpura. No petechiae. No prolonged or excessive bleeding. No palpable lymph nodes. PHYSICAL EXAMINATION: GENERAL: The patient is awake, alert and oriented to person only, lying/sitting in bed in no distress. VITAL SIGNS: Temperature 97.7 F, Pulse 77, Respiratory Rate 18, BP 131/76, Pulse Ox 93% HEENT: Head normocephalic, atraumatic. Eyes: Extraocular muscles are intact. Pupils are equal, round and reactive to light and accommodation. Ears: No lesions. Nose appeared normal. Throat: No exudate or erythema. NECK: Supple. No JVD, no carotid bruit. No lymphadenopathy or thyromegaly. LUNGS: Diminished breath sounds. Clear to auscultation. Percussion note normal. Chest symmetrical. HEART: Irregular heart rate. S1, S2, no S3. No murmurs. No cyanosis or clubbing. No ascites. Pulses: Dorsalis pedis and posterior tibial pulses +1 to +2 both sides. ABDOMEN: Soft. Non-tender. Bowel sounds active. No CVA tenderness. No mass felt. EXTREMITIES: No edema. Full range of motion of all extremities, equal. NEUROLOGIC: No focal deficit. Cranial nerves II through XII are grossly intact. No headache. No double vision. SKIN: Not dry. Intact. Turgor-normal. LYMPHATIC: No palpable lymph nodes/no lymphedema. MUSCULOSKELETAL: Normal joints with no swelling. Muscle tone is normal. LAB REVIEW: 04/11/21 04:33 04/11/21 04:33 04/11/21 04:33: Sodium 138.6, Potassium 3.81, Chloride 105.1, Carbon Dioxide 23.5, Anion Gap 13.81, BUN 27.8 H, Creatinine 1.05, Estimated GFR (MDRD) 67.00, BUN/Creatinine Ratio 26.47, Glucose 115.8 H, Calcium 8.80, Total Bilirubin 0.36, AST 23.6, ALT 20.7, Alkaline Phosphatase 42.7 L, Total Protein 5.85 L, Albumin 3.54, Globulin 2.31, Albumin/Globulin Ratio 1.53 04/11/21 04:33: WBC 13.06 H, RBC 3.99 L, Hgb 12.3 L, Hct 36.6 L, MCV 91.7, MCH 30.8, MCHC 33.6, RDW Coeff of Stacy 14.3, Plt Count 200, Immature Gran % (Auto) 1 .1, Neut % (Auto) 77.7 H, Lymph % (Auto) 15.9, [place] % (Auto) 4.5, Eos % (Auto) 0.5, Baso % (Auto) 0.3, Neut # (Auto) 10.1 H, Lymph # (Auto) 2.1, [place] # (Auto) 0.6, Eos # (Auto) 0.1, Baso # (Auto) 0.0, Immature Gran # (Auto) 0.1 ASSESSMENT: Please see below. 1. Acute bronchitis improving. 2. New onset atrial fibrillation. 3. Dementia with behavioral disturbances. 4. History of falls with subdural bleed. 5. Hypertension. 6. Anxiety. PLAN: 1. Echocardiogram. 2. T4, TSH. 3. Decrease Prednisone to 10 mg. 4. D/C Eliquis. The patient is a very high fall risk. He has a history of subdural hematoma following a fall. He was not on any blood thinners at the time of the subdural hematoma. Discussed risks vs benefits regarding finding of atrial fibrillation and blood thinners with daughter. At this point, risk of bleeding with falls outweighs risk of CVA with atrial fib. Plan and coordination of the patient's care discussed in the presence of Dining Room Maid and nurse. CONDITION: Stable SCRIBED BY: AMI HANNAH Police Detention Attendant scribed while in presence of service performed by Dr. Thompson/Josefina Barnhart APRN on 04/11/21 ([id number])
[2021-04-11] MEDS: ROCEPHIN 1 GM/50 ML D5W 1 GM/50 ML BAG IV SCH (09:42)
[2021-04-11] MEDS: MUCINEX DM ER 600-30 MG TABLET PO SCH ×2 (09:42→20:54)
[2021-04-11] MEDS: COLACE PO SCH (09:42)
[2021-04-11] MEDS: MIRALAX PO SCH (09:42)
[2021-04-11] MEDS: COZAAR PO SCH (09:42)
[2021-04-11] MEDS: IMDUR PO SCH (09:43)
[2021-04-11] MEDS: K-DUR PO SCH ×2 (09:43→16:46)
[2021-04-11] MEDS: CARDIZEM PO SCH ×2 (09:43→20:53)
[2021-04-11] MEDS: PREDNISONE PO SCH ×2 (09:43→09:54)
[2021-04-11] MEDS: FLOMAX PO SCH (09:43)
--- NOTE | 2021-04-11 10:35 | PN ---
DATE OF SERVICE: 04/10/2021 SUBJECTIVE: 89 year old white male hospitalized with acute bronchitis and dehydration. He seems to be improving and hydration status has improved. He is strong enough to be walking now with physical therapy. REVIEW OF SYSTEMS: CONSTITUTIONAL: No night sweats. No fatigue, malaise, lethargy. No fever or chills. HEENT: Eyes: No visual changes. No eye pain. No eye discharge. ENT: No runny nose. No epistaxis. No sinus pain. No sore throat. No odynophagia. No congestion. RESPIRATORY: No cough, no congestion. No hemoptysis. No shortness of breath. CARDIOVASCULAR: No angina symptoms. No CHF symptoms. No atypical chest pain for CAD. No palpitations. No PND. No orthopnea. GASTROINTESTINAL: No abdominal pain. No nausea or vomiting. No diarrhea or constipation. No hematemesis. No hematochezia. GENITOURINARY: No urgency. No frequency. No dysuria. No hematuria. No obstructive symptoms. No discharge. No pain. No significant abnormal bleeding. MUSCULOSKELETAL: No musculoskeletal pain; no joint swelling. NEUROLOGICAL: No headache. No neck pain. No syncope. No seizures. No dizziness. PSYCHIATRIC: Not anxious. No depression. No suicidal thoughts. No homicidal thoughts. SKIN: No rash. No lesions. No wounds. ENDOCRINE: No unexplained weight loss. No weight gain. HEMATOLOGIC/LYMPHATIC: No anemia. No purpura. No petechiae. No prolonged or excessive bleeding. No palpable lymph nodes. PHYSICAL EXAMINATION: VITAL SIGNS: Temperature 98.4, pulse 75, respiratory rate 18, blood pressure 150/80 and pulse ox 98%. HEENT: Head normocephalic, atraumatic. Eyes: Extraocular muscles are intact. Pupils are equal, round and reactive to light and accommodation. Ears: No lesions. Nose appeared normal. Throat: No exudate or erythema. NECK: Supple. No JVD, no carotid bruit. No lymphadenopathy or thyromegaly. LUNGS: Clear to auscultation. Percussion note normal. Chest symmetrical. HEART: S1, S2, no S3. No murmurs. No cyanosis or clubbing. No ascites. Pulses: Dorsalis pedis and posterior tibial pulses +1 to +2 bilaterally. ABDOMEN: Soft. Nontender. Bowel sounds active. No CVA tenderness. No mass felt. EXTREMITIES: No edema. Full range of motion of all extremities, equal. NEUROLOGIC: No focal deficit. Cranial nerves II through XII are grossly intact. No headache. No double vision. SKIN: Not dry. Intact. Turgor - normal. LYMPHATIC: No palpable lymph nodes/no lymphedema. MUSCULOSKELETAL: Normal joints with no swelling. Muscle tone is normal. LABS: hgb 12.3, hct 36, WBC 11,000 normal differential, creatinine 0.9, BUN 20, potassium 3.7. SARS Negative. GFR 72cc per minute. ASSESSMENT: 1. Bronchitis seems to be resolving 2. Dehydration seems to be resolving 3. Dementia seems to be improving. The patient recognized me 4. Atrial fibrillation with rapid ventricular response was given three doses of Cardizem 60mg PO at 0.5mg and Lanoxin IV PLAN: 1. Will monitor the patient's blood pressure 2. The patient is on Losartan and Sorbitrate. The patient is practically asymptomatic from Afib. 3. TIME SPENT: More than 30 minutes. Plan and coordination of the patient's care discussed in the presence of nurse. WARD
[2021-04-11] MEDS: COREG PO SCH (16:46)
[2021-04-11] MEDS: ATIVAN PO PRN (20:53)
[2021-04-12] MEDS: SYNTHROID PO SCH (05:37)
[2021-04-12 05:38] LABS: BASOPHILS # (AUTO) 0.1 K/uL (0-0.2); BASOPHILS % (AUTO) 0.6 % (0.0-3.0); EOSINOPHILS # (AUTO) 0.2 K/ul (0.0-0.7); EOSINOPHILS % (AUTO) 1.7 % (0.0-7.0); HEMATOCRIT 40.6 % (42.0-52.0); HEMOGLOBIN 13.7 g/dl (14.0-18.0); IMMATURE GRANULOCYTE # (AUTO) 0.2 (0.0-1.0); IMMATURE GRANULOCYTE % (AUTO) 1.7 % (0.0-5.0); LYMPHOCYTES % (AUTO) 27.1 (10.0-50.0); MEAN CORPUSCULAR HEMOGLOBIN 30.9 pg (27.0-31.0); MEAN CORPUSCULAR HGB CONC 33.7 (31.8-35.4); MEAN CORPUSCULAR VOLUME 91.4 fl (80.0-94.0); MONOCYTES # (AUTO) 0.6 K/uL (0.4-2.0); MONOCYTES % (AUTO) 5.5 (0-10); NEUTROPHILS # (AUTO) 6.9 K/ul (2.0-6.9); NEUTROPHILS % (AUTO) 63.4 % (42.2-75.2); PLATELET COUNT 210 10^3/uL (140-440); RDW COEFFICIENT OF VARIATION 14.4 % (11.6-14.8); RED BLOOD COUNT 4.44 10^6/ul (4.70-6.10); WHITE BLOOD COUNT 10.94 K/ul (4.2-10.2)
[2021-04-12 05:56] LABS: ALANINE AMINOTRANSFERASE 23.6 U/L (0-50); ALBUMIN 3.94 g/dL (3.5-5.0); ALKALINE PHOSPHATASE 46.5 U/L (56-119); ASPARTATE AMINO TRANSFERASE 26.2 U/L (17-59); BILIRUBIN,TOTAL 0.46 mg/dL (0.2-1.3); BLOOD UREA NITROGEN 21.1 mg/dL (9-20); CALCIUM 8.78 mg/dL (8.4-10.2); CARBON DIOXIDE 26.3 mmol/L (22-30.0); CHLORIDE 103.6 mmol/L (98-107); CREATININE 0.95 mg/dL (0.60-1.10); GLUCOSE 107.1 mg/dL (74-106); POTASSIUM 3.89 mmol/L (3.5-5.1); SODIUM 138.1 mmol/L (134.5-145); TOTAL PROTEIN 6.35 g/dL (6.3-8.2)
[2021-04-12] MEDS: MUCINEX DM ER 600-30 MG TABLET PO SCH (08:36)
[2021-04-12] MEDS: CARDIZEM PO SCH (08:41)
[2021-04-12] MEDS: COREG PO SCH (08:43)
[2021-04-12] MEDS: COLACE PO SCH (08:43)
[2021-04-12] MEDS: FLOMAX PO SCH (08:44)
[2021-04-12] MEDS: K-DUR PO SCH (08:45)
[2021-04-12] MEDS: IMDUR PO SCH (08:45)
[2021-04-12] MEDS: MIRALAX PO SCH (08:46)
[2021-04-12] MEDS: PREDNISONE PO SCH (08:47)
[2021-04-12] MEDS: ROCEPHIN 1 GM/50 ML D5W 1 GM/50 ML BAG IV SCH (09:06)
[2021-04-12 11:02] VITALS: BP 125/73; TEMP 97
--- NOTE | 2021-04-12 11:02 | DS ---
DATE OF SERVICE: 04/12/21 CODE STATUS: DO NOT INTUBATE; CPR ONLY FINAL DIAGNOSIS: 1. NEW ONSET ATRIAL FIBRILLATION WITH RVR 2. ACUTE BRONCHITIS 3. DEHYDRATION, RESOLVED 4. HYPERTENSION 5. LVH 6. CAD WITH STENT 7. ASCENDING AORTIC ANEURYSM, 4.2 CM (CT 04/05/2021) 8. HYPOTHYROIDISM 9. DEMENTIA WITH BEHAVIOR DISTURBANCE 10. INCREASED FALLS 11. PROSTATE CANCER 12. SUBDURAL AND SUBARACHNOID HEMORRHAGE FROM FALL, 2018 13. ATAXIA 14. B12 DEFICIENCY 15. CHRONIC KIDNEY DISEASE, STAGE 3 16. THROMBOCYTOPENIA 17. HIATAL HERNIA, SMALL (PER CT 04/05/2021) 18. S/P CATH, 2013 19. CRANIOTOMY, 2017 20. RIGHT CATARACT SURGERY, 2018 21. CHOLECYSTECTOMY 22. ECHOCARDIOGRAM, 03/2021 LAST VITALS Temp Pulse Resp BP Pulse Ox 97.0 F L 86 18 125/73 97 04/12/21 10:45 04/12/21 10:45 04/12/21 10:45 04/12/21 10:45 04/12/21 10:45 DISCHARGE INSTRUCTIONS: 1. DISCHARGE TO [facility] 2. PHYSICAL AND OCCUPATIONAL THERAPY EVALUATION AND TREAT 3. VITAL SIGNS DAILY FOR 1 WEEK AND THEN PER FACILITY PROTOCOL 4. WEIGH MONTHLY 5. LABS PER FACILITY PROTOCOL 6. AN APPOINTMENT IS SCHEDULED WITH DR. ROQUE/JOSEFINA GILES APRN ON APRIL 22, 2021 AT 11:30 FOR A CARDIOLOGY FOLLOW-UP DUE TO NEW DIAGNOSIS OF ATRIAL FIB WITH NEW MEDICATIONS. PATIENT WILL BE SEEN BY FACILITY MD/IN HOME BABY SITTER. MEDICATIONS AT DISCHARGE: ASA 81 MG PO [facility] DAILY LAST ADMIN: Carvedilol (Carvedilol 3.125 Mg Tablet) 3.125 mg PO BIDWM [facility] Last Admin: 04/12/21 08:43 Dose: 3.125 mg Documented by: Diltiazem HCl (Diltiazem Hcl 60 Mg Tablet) 90 mg PO BID [facility] Last Admin: 04/12/21 08:41 Dose: 90 mg Documented by: Docusate Sodium (Docusate Sodium 100 Mg Capsule) 100 mg PO DAILY [facility] Last Admin: 04/12/21 08:43 Dose: 100 mg Documented by: Isosorbide Mononitrate (Isosorbide Mononitrate 30 Mg Tab.Er.24h) 30 mg PO DAILY [facility] Last Admin: 04/12/21 08:45 Dose: 30 mg Documented by: Levothyroxine Sodium (Levothyroxine Sodium 50 Mcg Tablet) 50 mcg PO QDAC [facility] Last Admin: 04/12/21 05:37 Dose: 50 mcg Documented by: Lorazepam (Lorazepam 0.5 Mg Tablet) 0.5 mg PO BID PRN ANXIETY FOR 2 WEEKS ONLY PRN Reason: Anxiety Last Admin: 04/11/21 20:53 Dose: 0.5 mg Documented by: Polyethylene Glycol (Polyethylene Glycol 17 Gm Powd.Pack) 17 gm PO DAILY [facility] Last Admin: 04/12/21 08:46 Dose: 17 gm Documented by: Potassium Chloride (Potassium Chloride 20 Meq Tab) 20 meq PO BIDWM [facility] Last Admin: 04/12/21 08:45 Dose: 20 meq Documented by: Tamsulosin HCl (Tamsulosin Hcl 0.4 Mg Cap.Er.24h) 0.4 mg PO DAILY [facility] Last Admin: 04/12/21 08:44 Dose: 0.4 mg Documented by: NEW PRESCRIPTIONS: CARVEDILOL 3.125 MG BID WITH MEAL CARDIZEM 90 MG BID LORAZEPAM 0.5 MG BID PRN ANXIETY X 2 WEEKS ASA 81 MG DAILY FLOMAX 0.4 MG DAILY DISCONTINUED MEDICATIONS: MUCINEX DM AMOXICILLIN [place]AN DIET INSTRUCTIONS: REGULAR, BITE SIZE PIECES LIQUIDS REGULAR CONSISTENCY ACTIVITY: UP TO CHAIR FOR MEALS UP WITH THERAPY, USING ROLLING WALKER SMOKING: NOT APPLICABLE DISEASE SPECIFIC EDUCATION: PATIENT IS ALERT TO PERSON, PLACE. DOES NOT RECALL TEACHING HOSPITAL COURSE: 89-year-old white male, who was hospitalized after being seen in ER twice. He was admitted with acute bronchitis, dehydration and change in mental status. Chest x-ray showed no consolidation. Renal function was increased on admission. He was placed on Rocephin 1 gm IV daily along with Decadron daily. While on telemetry, it was noted that he developed new onset of atrial fibrillation with IVR. IV Digoxin and Cardizem were given. Rate has since been controlled with p.o. Cardizem and Coreg. Dr. Roque performed echocardiogram which showed normal contractility. Losartan was discontinued. Rate has been controlled for the past 48 hours. He was initially started on low dose Eliquis. Given his history of increased confusions and and recurrent falls it was decided along with the family the risk of bleeding outweighed the benefit. Eliquis was discontinued and will not be on any blood thinner. He will be discharged to go to [place] along with his . Family in agreement. SCRIBED BY: AMI HANNAH, Construction Estimator scribed while in presence of service performed by Dr. Roque/Josefina Giles APRN on 04/12/21 ([id number]) TIME SPENT: More than 60 minutes. WARD
--- NOTE | 2021-04-12 11:03 | PCM.PROG ---
Attending Provider: ATTENDING PROVIDER: Dr. KENNETH THOMPSON This patient is seen with Josefina Barnhart, Nurse Practitioner. DATE OF SERVICE: 04/12/21 SUBJECTIVE: This 89 year old /WHITE M was hospitalized 04/08/21. The patient is resting comfortably. Cough has resolved. He is feeling better. He is eating well. He is alert but pleasantly confused. REVIEW OF SYSTEMS: CONSTITUTIONAL: Weakness. No night sweats. No fatigue, malaise, lethargy. No fever or chills. HEENT: Eyes: No visual changes. No eye pain. No eye discharge. ENT: No runny nose. No epistaxis. No sinus pain. No odynophagia. No congestion. RESPIRATORY: No cough, no congestion. No hemoptysis. No shortness of breath. CARDIOVASCULAR: No angina symptoms. No CHF symptoms. No atypical chest pain for CAD. No palpitations. No orthopnea.. GASTROINTESTINAL: No abdominal pain. No nausea or vomiting. No diarrhea or constipation. No hematemesis. No hematochezia. GENITOURINARY: No urgency. No frequency. No dysuria. No hematuria. No obstructive symptoms. No discharge. No pain. No significant abnormal bleeding. MUSCULOSKELETAL: No musculoskeletal pain; no joint swelling. NEUROLOGICAL: Awake, alert, oriented to time, place and person. No headache. No neck pain. No syncope. No seizures. No dizziness. PSYCHIATRIC: Not anxious. No depression. No suicidal thoughts. No homicidal thoughts. SKIN: No rash. No lesions. No wounds. ENDOCRINE: No unexplained weight loss. No weight gain. HEMATOLOGIC/LYMPHATIC: No anemia. No purpura. No petechiae. No prolonged or excessive bleeding. No palpable lymph nodes. PHYSICAL EXAMINATION: GENERAL: The patient is awake, alert and oriented, lying/sitting in bed in no distress. VITAL SIGNS: Temperature 97.8 F, Pulse 78, Respiratory Rate 18, BP 138/79, Pulse Ox 98% HEENT: Head normocephalic, atraumatic. Eyes: Extraocular muscles are intact. Pupils are equal, round and reactive to light and accommodation. Ears: No lesions. Nose appeared normal. Throat: No exudate or erythema. NECK: Supple. No JVD, no carotid bruit. No lymphadenopathy or thyromegaly. LUNGS: Diminished breath sounds. Clear to auscultation. Percussion note normal. Chest symmetrical. HEART: Irregular heart rate. S1, S2, no S3. No murmurs. No cyanosis or clubbi ng. No ascites. Pulses: Dorsalis pedis and posterior tibial pulses +1 to +2 both sides. ABDOMEN: Soft. Non-tender. Bowel sounds active. No CVA tenderness. No mass felt. EXTREMITIES: No edema. Full range of motion of all extremities, equal. NEUROLOGIC: No focal deficit. Cranial nerves II through XII are grossly intact. No headache. No double vision. SKIN: Not dry. Intact. Turgor-normal. LYMPHATIC: No palpable lymph nodes/no lymphedema. MUSCULOSKELETAL: Normal joints with no swelling. Muscle tone is normal. LAB REVIEW: 04/12/21 04:54 04/12/21 04:54 04/12/21 04:54: Sodium 138.1, Potassium 3.89, Chloride 103.6, Carbon Dioxide 26.3, Anion Gap 12.09, BUN 21.1 H, Creatinine 0.95, Estimated GFR (MDRD) 75.00, BUN/Creatinine Ratio 22.21, Glucose 107.1 H, Calcium 8.78, Total Bilirubin 0.46, AST 26.2, ALT 23.6, Alkaline Phosphatase 46.5 L, Total Protein 6.35, Albumin 3.94, Globulin 2.41, Albumin/Globulin Ratio 1.63 04/12/21 04:54: WBC 10.94 H, RBC 4.44 L, Hgb 13.7 L, Hct 40.6 L, MCV 91.4, MCH 30.9, MCHC 33.7, RDW Coeff of Stacy 14.4, Plt Count 210, Immature Gran % (Auto) 1.7, Neut % (Auto) 63.4, Lymph % (Auto) 27.1, [place] % (Auto) 5.5, Eos % (Auto) 1.7, Baso % (Auto) 0.6, Neut # (Auto) 6.9, Lymph # (Auto) 3.0, [place] # (Auto) 0.6, Eos # (Auto) 0.2, Baso # (Auto) 0.1, Immature Gran # (Auto) 0.2 04/11/21 04:33: TSH 2.350 ASSESSMENT: Please see below. 1. New onset atrial fibrillation. 2. Acute bronchitis, resolved. 3. Dehydration resolved. 4. Dementia with behavioral disturbance. PLAN: 1. Discharge to [place]. 2. Aspirin 81 mg daily. 3. Stop Prednisone. 4. Continue Ativan 0.5 mg b.i.d. p.r.n. two weeks. 5. Stop Guiafenesin. Risks vs benefit regarding blood thinner and atrial fibrillation discussed at length with daughter at this time due to history of intracranial bleed along with recurrent falls, the risk outweighs the benefit. Plan and coordination of the patient's care discussed in the presence of Developmental Mathematics Instructor and nurse. CONDITION: Stable
--- NOTE | 2021-04-12 11:49 | PN ---
DATE OF SERVICE: 04/11/2021 SUBJECTIVE: The patient was seen and examined this morning with the Nurse Practitioner. The patient's condition is stable and improving. He is walking around. Bronchitis symptoms better. Echo done which showed normal LV contractility, normal left atrial size and left ventricular size and valve structures are normal. PLAN: 1. Discontinue Cozaar 2. Start Coreg 3.125mg twice a day 3. Cardizem 90mg PO twice a day 4. Earlier the patient's brought up that the patient had subdural which happened because the patient had fallen. The patient doesn't want any blood thinner. He understands the risk of not covering patient with atrial fibrillation with blood thinners. He is quite aware of it. Discussed Eliquis in detail and with side effect with Power of Purse Seiner for Health and she does not want any blood thinner in any form. 5. We will discontinue Eliquis which was started last night. TIME SPENT: More than 30 minutes. Plan and coordination of the patient's care discussed in the presence of nurse. WARD
--- NOTE | 2021-04-12 12:58 | CM.DICTOOL ---
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, 2018 ATAXIA B12 DEFICIENCY CHRONIC KIDNEY DISEASE, STAGE 3 THROMBOCYTOPENIA HIATAL HERNIA, SMALL (PER CT 04/05/2021) S/P CATH, 2014 CRANIOTOMY, 2018 RIGHT CATARACT SURGERY, 2019 CHOLECYSTECTOMY ECHOCARDIOGRAM, 03/2021 LAST VITALS Temp Pulse Resp BP Pulse Ox 97.0 F L 86 18 125/73 97 04/12/21 10:45 04/12/21 10:45 04/12/21 10:45 04/12/21 10:45 04/12/21 10:45 TAKE THESE MEDICATIONS AT HOME ASA 81 MG PO [facility] DAILY LAST ADMIN: Carvedilol (Carvedilol 3.125 Mg Tablet) 3.125 mg PO BIDWM [facility] Last Admin: 04/12/21 08:43 Dose: 3.125 mg Documented by: Diltiazem HCl (Diltiazem Hcl 60 Mg Tablet) 90 mg PO BID [facility] Last Admin: 04/12/21 08:41 Dose: 90 mg Documented by: Docusate Sodium (Docusate Sodium 100 Mg Capsule) 100 mg PO DAILY [facility] Last Admin: 04/12/21 08:43 Dose: 100 mg Documented by: Isosorbide Mononitrate (Isosorbide Mononitrate 30 Mg Tab.Er.24h) 30 mg PO DAILY [facility] Last Admin: 04/12/21 08:45 Dose: 30 mg Documented by: Levothyroxine Sodium (Levothyroxine Sodium 50 Mcg Tablet) 50 mcg PO QDAC [facility] Last Admin: 04/12/21 05:37 Dose: 50 mcg Documented by: Lorazepam (Lorazepam 0.5 Mg Tablet) 0.5 mg PO BID PRN ANXIETY FOR 2 WEEKS ONLY PRN Reason: Anxiety Last Admin: 04/11/21 20:53 Dose: 0.5 mg Documented by: Polyethylene Glycol (Polyethylene Glycol 17 Gm Powd.Pack) 17 gm PO DAILY [facility] Last Admin: 04/12/21 08:46 Dose: 17 gm Documented by: Potassium Chloride (Potassium Chloride 20 Meq Tab) 20 meq PO BIDWM [facility] Last Admin: 04/12/21 08:45 Dose: 20 meq Documented by: Tamsulosin HCl (Tamsulosin Hcl 0.4 Mg Cap.Er.24h) 0.4 mg PO DAILY [facility] Last Admin: 04/12/21 08:44 Dose: 0.4 mg Documented by: ALLERGIES No Known Allergies Allergy (Verified 04/05/21 12:34) DISCONTINUED MEDICATIONS MUCINEX DM AMOXICILLIN [place] NEW PRESCRIPTIONS: CARVEDILOL 3.125 MG BID WITH MEAL CARDIZEM 90 MG BID LORAZEPAM 0.5 MG BID PRN ANXIETY X 2 WEEKS ASA 81 MG DAILY FLOMAX 0.4 MG DAILY SMOKING: NOT APPLICALBE DISEASE SPECIFIC EDUCATION: PATIENT IS ALERT TO PERSON, PLACE. DOES NOT RECALL TEACHING LAB REVIEW: 04/12/21 04:54 04/12/21 04:54 04/12/21 04:54: Sodium 138.1, Potassium 3.89, Chloride 103.6, Carbon Dioxide 26.3, Anion Gap 12.09, BUN 21.1 H, Creatinine 0.95, Estimated GFR (MDRD) 75.00, BUN/Creatinine Ratio 22.21, Glucose 107.1 H, Calcium 8.78, Total Bilirubin 0.46, AST 26.2, ALT 23.6, Alkaline Phosphatase 46.5 L, Total Protein 6.35, Albumin 3.94, Globulin 2.41, Albumin/Globulin Ratio 1.63 04/12/21 04:54: WBC 10.94 H, RBC 4.44 L, Hgb 13.7 L, Hct 40.6 L, MCV 91.4, MCH 30.9, MCHC 33.7, RDW Coeff of Stacy 14.4, Plt Count 210, Immature Gran % (Auto) 1.7, Neut % (Auto) 63.4, Lymph % (Auto) 27.1, [place] % (Auto) 5.5, Eos % (Auto) 1.7, Baso % (Auto) 0.6, Neut # (Auto) 6.9, Lymph # (Auto) 3.0, [place] # (Auto) 0.6, Eos # (Auto) 0.2, Baso # (Auto) 0.1, Immature Gran # (Auto) 0.2 PLAN: DISCHARGE TO [facility] DIET: REGULAR, BITE SIZE PIECES LIQUIDS REGULAR CONSISTENCY ACTIVITY: UP TO CHAIR FOR MEALS UP WITH THERAPY, USING [facility] PHYSICAL AND OCCUPATIONAL THERAPY EVALUATION AND TREAT VITAL SIGNS DAILY FOR 1 WEEK AND THEN PER FACILITY PROTOCOL WEIGH MONTHLY LABS PER FACILITY PROTOCOL AN APPOINTMENT IS SCHEDULED WITH DR. THOMPSON/MORENO GILES APRN ON APRIL 22, 2021 AT 11:30 FOR A CARDIOLOGY FOLLOW-UP DUE TO NEW DIAGNOSIS OF ATRIAL FIB WITH NEW MEDICATIONS PATIENT WILL BE SEEN BY FACILITY MD/RAZ CODE STATUS: DO NOT INTUBATE; CPR ONLY MR. KINGSTON IS ALERT TO PERSON, PLACE. HE IS PLEASANT AND COOPERATIVE. HE IS FORGETFUL. MR. KINGSTON HAS LIVED AT HOME WITH HIS , ADONIS BUT HAS RECENTLY E XPERIENCED FALLS AND INCREASED CONFUSION AT HOME. HE IS IMPULSIVE WITH ACTIVITY, SAFETY AWARENESS IS POOR. PER THE FAMILY REQUEST, HE IS GOING TO [facility] FOR THERAPY. MR. KINGSTON IS INDEPENDENT WITH FEEDING. HIS APPETITE HAS BEEN GOOD AT 75-100%. HE IS INDEPENDENT WITH BED MOBILITY. HE REQUIRES ASSISTANCE OF 1 STAFF MEMBER FOR TRANSFERS AND AMBULATION TO THE BATHROOM. HE IS INCONTINENT OF URINE DUE TO URINARY DRIBBLING. HE WEARS DEPENDS UNDERGARMENTS. HE IS CONTINENT OF STOOL. HYDRATION STATUS HAS IMPROVED. SKIN IS INTACT EXCEPT FOR SCATTERED SCABBED AREAS TO THE UPPER EXTREMITIES. MD MORENO LUCIA APRN
--- NOTE | 2021-04-15 11:12 | PN ---
DATE OF SERVICE: 04/12/2021 SUBJECTIVE: The patient was seen and examined with the Nurse Practitioner. The patient's condition is stable. Bronchitis practically has resolved. The patient is in sinus rhythm. He has atrial fibrillation. He family had declined to use any form of blood thinner because of history of subdural case. The patient's mental status seems to have improved. They patient is going to be discharged home in stable condition to be followed as an outpatient. TIME SPENT: More than 30 minutes. Plan and coordination of the patient's care discussed in the presence of nurse. WARD
--- NOTE | 2021-04-15 11:13 | PN ---
04/08/2021: Level 5 04/09/2021: Intermediate 04/10/2021: Intermediate 04/11/2021: Intermediate 04/12/2021: D as in discharge MTDD
--- NOTE | 2021-04-15 13:28 | ECHO2D ---
Date of Exam: 04/11/2021 Ordering Physician: DR. KENNETH THOMPSON Room #: [id number] Reason for Echo: NEW ONSET ATRIAL FIBRILLATION M-Mode Normal Adult Results LV Dimensions Normal Adult Results AoV Opening excursions >1.6 >1.6 LVEDD-base- 3.5-5.8 5.1 Ao root dimensions 2.0-3.7 3.7 LVESD-base- 3.1-4.6 L. Atrium dimensions 1.9-3.8 4.2 Post. Wall thickness 0.8-1.1 1.2 IV septum (thickness) 0.7-1.2 1.4 Post. Wall excursion 0.72-1.3 NORMAL Septal motion NORMAL Systolic motion R. Ventricular cavity 1.5-2.0 NORMAL LVEF 60% 70% Paradoxical septal wall motion NORMAL 2-D : 2-D M Mode Echocardiogram was performed using apical four chamber and left parasternal long and short axis views. Mitral, tricuspid and aortic valves appear to be normal. Contractility of the left ventricle seems to be normal, so is the cavity size. ENLARGED LEFT ATRIAL CAVITY SIZE. Aortic root appears to be normal. There is no pericardial effusion. There is no thrombus noted in the left ventricle or left atrial cavity. M-MODE: MV: NORMAL AV: NORMAL TV: NORMAL PV: CHAMBER SIZE: ENLARGED LEFT ATRIAL CAVITY WALL MOTION: NORMAL PERICARDIUM: NORMAL INTERPRETATION: 1. 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 NORMAL VALVES 3. NORMAL LEFT VENTRICLE SIZE AND CONTRACTILITY MTDD
== END 2021-04-12 13:20 | DRG 202 ==
LOC: LAB 11:12 → MEDSURG A 13:07
PROVIDERS: ADMIT Internal Medicine; ATTEND Internal Medicine
DX: Z20.828 Contact with and (suspected) exposure to other viral communicable diseases; I10 Essential (primary) hypertension; I50.1 Left ventricular failure, unspecified; J20.9 Acute bronchitis, unspecified; N18.30 Chronic kidney disease, stage 3 unspecified; F03.91 Unspecified dementia, unspecified severity, with behavioral disturbance; Z95.5 Presence of coronary angioplasty implant and graft; E86.0 Dehydration; I25.810 Atherosclerosis of coronary artery bypass graft(s) without angina pectoris